=== PATIENT | female | born 1995 | race Caucasian/White ===

== ENCOUNTER 2018-01-24 21:29 | Emergency (ER) | payer OTHER ==
[2018-01-24 21:37] VITALS: BP 147/86; PULSE 106; RESP 20; TEMP 98.2
[2018-01-24] MEDS ORDERED: predniSONE 50 MG TAB PO STA (22:03)
[2018-01-24] MEDS ORDERED: diphenhydrAMINE 50 MG CAP PO STA (22:03)
--- NOTE | 2018-01-24 22:07 | ED ---
Skin/Abscess/FB HPI - General Source: patient, RN notes reviewed, old records reviewed Mode of arrival: ambulatory Limitations: no limitations <Lorelei Fischer - Last Filed: 01/25/18 05:29> <Tori Matthew - Last Filed: 01/25/18 05:56> - General Chief complaint: Skin/Abscess/Foreign Body Stated complaint: Allergic reaction Time Seen by Provider: 01/24/18 21:57 - History of Present Illness Initial comments: 22-year-old female presented today which included ALLERGIC reaction. She reports that she started to notice hives over her forearms chest and back. Patient states she does not know any new exposures. She reports the symptoms started when she came home from school today and she was laying on the couch. Patient states that she's had no new foods. No medications that are new. She denies any other complaints. She states that she initially took a shower and the pain and itching became worse at that time. No recent Benadryl. (Lorelei Fischer) - Related Data Previous Rx's Medication Instructions Recorded Hydrocortisone Cream 1 applic TOPICAL QID #60 gm 01/24/18 [Hydrocortisone 1% Cream] Loratadine [Claritin] 10 mg PO DAILY #20 tab 01/24/18 diphenhydrAMINE [Benadryl] 25 mg PO QID PRN #20 capsule 01/24/18 predniSONE 50 mg PO DAILY #4 tablet 01/24/18 Allergies Allergy/AdvReac Type Severity Reaction Status Date / Time amoxicillin Allergy Rash/Hives Verified 01/24/18 21:48 Penicillins Allergy Unknown Verified 01/24/18 21:48 Review of Systems ROS Other: All systems not noted in ROS Statement are negative. <Lorelei Fischer - Last Filed: 01/25/18 05:29> ROS Other: All systems not noted in ROS Statement are negative. <Tori Matthew - Last Filed: 01/25/18 05:56> ROS Statement: Those systems with pertinent positive or pertinent negative responses have been documented in the HPI. Past Medical History Past Medical History: No Reported History Past Surgical History: No Surgical Hx Reported Past Psychological History: No Psychological Hx Reported Smoking Status: Never smoker Past Alcohol Use History: None Reported Past Drug Use History: None Reported <Lorelei Fischer - Last Filed: 01/25/18 05:29> General Exam Limitations: no limitations Head exam: Present: atraumatic, normocephalic, normal inspection Eye exam: Present: normal appearance, PERRL, EOMI. Absent: scleral icterus, conjunctival injection, periorbital swelling ENT exam: Present: normal exam, mucous membranes moist Neck exam: Present: normal inspection. Absent: tenderness, meningismus, lymphadenopathy Respiratory exam: Present: normal lung sounds bilaterally. Absent: respiratory distress, wheezes, rales, rhonchi, stridor Cardiovascular Exam: Present: regular rate, normal rhythm, normal heart sounds. Absent: systolic murmur, diastolic murmur, rubs, gallop, clicks GI/Abdominal exam: Present: soft, normal bowel sounds. Absent: distended, tenderness, guarding, rebound, rigid Extremities exam: Present: normal inspection, full ROM, normal capillary refill. Absent: tenderness, pedal edema, joint swelling, calf tenderness Back exam: Present: normal inspection Neurological exam: Present: alert, oriented X3, CN II-XII intact Psychiatric exam: Present: normal affect, normal mood Skin exam: Present: warm, dry, intact, normal color, rash (Urticaria over chest , upper abdomen. Over bilateral forearms and upper arms and mid back. No evidence of urticaria over the legs.) <Lorelei Fischer - Last Filed: 01/25/18 05:29> <Tori Matthew - Last Filed: 01/25/18 05:56> - General Exam Comments Initial Comments: 22-year-old female. Alert and oriented. Patient appears in no acute distress. (Lorelei Fischer) Vital Signs 01/24/18 21:35 Temperature 98.2 F Pulse Rate 106 H Respiratory 20 Rate Blood Pressure 147/86 O2 Sat by Pulse 99 Oximetry Medical Decision Making <Lorelei Fischer - Last Filed: 01/25/18 05:29> <Tori Matthew - Last Filed: 01/25/18 05:56> - Medical Decision Making 22-year-old female presents with ALLERGIC reaction rash. Patient does not know any new exposures. She has diffuse urticaria over her chest, abdomen and arms and back. No tongue swelling. No difficulty breathing. Patient reports her symptoms are worse after taking a hot shower. Patient was given a dose of Benadryl and steroids and emergency department. She otherwise appears in no acute distress. We'll discharge the Patient with entirely history medication, Benadryl and prednisone. Discussed no further exposures. Discussed she may need to follow-up with PCP or ENT for ALLERGY testing. Patient agrees treatment plan will comply. Return parameters were discussed. (Lorelei Fischer) I was available for consultation in the emergency department. The history and physical exam were done by the Midlevel Provider. Medical decision making was done by the Midlevel Provider. The Midlevel Provider did not contact me for this patient's care. I was not directly involved in this patient's care. (Tori Matthew) Disposition Is patient prescribed a controlled substance at d/c from ED?: No Time of Disposition: 22:04 <Lorelei Fischer - Last Filed: 01/25/18 05:29> <Tori Matthew - Last Filed: 01/25/18 05:56> Clinical Impression: Allergic reaction Disposition: HOME SELF-CARE Condition: Good Instructions: General Allergic Reaction (ED) Additional Instructions: Patient advised follow-up with primary care physician. Return to ED if any alarming signs or symptoms occur. Prescriptions: diphenhydrAMINE [Benadryl] 25 mg PO QID PRN #20 capsule PRN Reason: Itching Hydrocortisone Cream [Hydrocortisone 1% Cream] 1 applic TOPICAL QID #60 gm Loratadine [Claritin] 10 mg PO DAILY #20 tab predniSONE 50 mg PO DAILY #4 tablet Referrals: Chago Del Real MD [Primary Care Provider] - 1-2 days
== END 2018-01-24 22:17 | disposition home or self-care (01) ==
LOC: EC 21:29
DX: T78.40XA Allergy, unspecified, initial encounter (principal); Z88.0 Allergy status to penicillin
CPT/HCPCS: 99283; J7512

== ENCOUNTER 2018-05-17 15:39 | Emergency (ER) | payer OTHER ==
[2018-05-17 15:51] VITALS: TEMP 97.8
[2018-05-17 16:57] LABS: Appearance,Urine Clear (Clear); Bacteria,Urine Rare /hpf; Bilirubin,Urine Negative (Negative); Blood,Urine Negative (Negative); Color,Urine Yellow; Glucose,Urine (UA) Negative (Negative); Ketones,Urine Negative (Negative); Leukocyte Esterase,Urine Small (Negative); Mucus,Urine Rare /hpf; Nitrite,Urine Negative (Negative); PH, Urine 6.5 (5.0-8.0); Protein,Urine Negative (Negative); RBC,Urine 1 /hpf (0-5); Specific Gravity,Urine 1.016 (1.001-1.035); Squamous Epithelial Cell,Urine <1 /hpf (0-4); Urobilinogen,Urine <2.0 mg/dL (<2.0); WBC,Urine 3 /hpf (0-5)
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
--- NOTE | 2018-05-17 17:57 | XR ---
EXAMINATION TYPE: XR lumbar spine 2 or 3V DATE OF EXAM: 05/17/2018 COMPARISON: NONE HISTORY: Pain 3 views show normal spacing and alignment of the vertebra. Posterior elements are intact. Sacroiliac joints appear normal. There is no compression fracture. IMPRESSION: Normal lumbar spine.
--- NOTE | 2018-05-17 17:57 | XR ---
EXAMINATION TYPE: XR Hip Bilateral and AP pelvis DATE OF EXAM: 05/17/2018 COMPARISON: NONE HISTORY: Pain TECHNIQUE: 5 views. FINDINGS: The pelvic ring is intact. Proximal femurs and hip joints appear normal. There is no sign of hip join t dysplasia. Sacroiliac joints appear normal. IMPRESSION: Normal pelvis and bilateral hip exam.
[2018-05-17 18:57] VITALS: BP 130/72; PULSE 91; RESP 18
== END 2018-05-17 18:57 | disposition home or self-care (01) ==
LOC: EC 15:39
DX: M25.551 Pain in right hip (principal); M25.552 Pain in left hip; R51 Headache; M54.2 Cervicalgia; Z88.0 Allergy status to penicillin; V47.5XXA Car driver injured in collision with fixed or stationary object in traffic accident, initial encounter; Y92.410 Unspecified street and highway as the place of occurrence of the external cause
CPT/HCPCS: 81001; 81025; 72100; 73521; 72125; 70450; 99284; L0120

== ENCOUNTER → 2018-08-24 | Outpatient (CLI) | payer OTHER ==
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
== END | disposition home or self-care (01) ==
LOC: RADUSWWP 12:00
PROVIDERS: ATTEND Internal Medicine
DX: R10.9 Unspecified abdominal pain (principal)
CPT/HCPCS: 76700; 76857

== ENCOUNTER 2019-03-28 21:30 | Emergency (ER) | payer OTHER ==
[2019-03-28 21:34] VITALS: BP 158/91; PULSE 86; RESP 20; TEMP 99
[2019-03-28] MEDS ORDERED: IBUPROFEN 600 MG TAB PO STA (21:53)
--- NOTE | 2019-03-28 22:26 | ED ---
General Adult HPI - General Chief complaint: Extremity Problem,Nontraumatic Stated complaint: Arm pain Time Seen by Provider: 03/28/19 21:38 Source: patient Mode of arrival: ambulatory Limitations: no limitations - History of Present Illness Initial comments: 24-year-old female patient presents to the emergency department today for evaluation of right hand and arm tingling. She is also reporting discoloration to the right hand. Patient states that she notices started a couple of hours ago. Patient states that symptoms have not improved. States that her right arm does feel cold. She denies any known injury. Denies history of similar symptoms. Denies any medical problems in her history. Denies any recent medication use. Denies any alcohol or drug use. Patient denies any recent rash, fever, chills, shortness breath, chest pain, abdominal pain, nausea, vomiting, diarrhea, constipation, back pain, dizziness, weakness, hematuria, dysuria, urinary urgency, urinary frequency, headache, visual changes, or any other complaints. - Related Data Previous Rx's Medication Instructions Recorded Cyclobenzaprine [Flexeril] 5 mg PO TID #12 tablet 05/17/18 Ibuprofen [Motrin] 600 mg PO Q8HR PRN #30 tab 03/28/19 Allergies Allergy/AdvReac Type Severity Reaction Status Date / Time amoxicillin Allergy Unknown Verified 03/28/19 21:34 Childhood Penicillins Allergy Unknown Verified 03/28/19 21:34 Childhood Review of Systems ROS Statement: Those systems with pertinent positive or pertinent negative responses have been documented in the HPI. ROS Other: All systems not noted in ROS Statement are negative. Past Medical History Past Medical History: No Reported History History of Any Multi-Drug Resistant Organisms: None Reported Past Surgical History: No Surgical Hx Reported Past Psychological History: No Psychological Hx Reported Smoking Status: Never smoker Past Alcohol Use History: None Reported Past Drug Use History: None Reported General Exam Limitations: no limitations General appearance: alert, in no apparent distress, other (This is a well- developed, well-nourished adult female patient in no acute distress. Vital signs upon presentation are temperature 99.0 degrees her neck, pulse 86, respirations 20, blood pressure 158/91, pulse ox 99% on room air.) Neck exam: Present: normal inspection, full ROM. Absent: tenderness, meningismus, lymphadenopathy Respiratory exam: Present: normal lung sounds bilaterally. Absent: respiratory distress, wheezes, rales, rhonchi, stridor Cardiovascular Exam: Present: regular rate, normal rhythm, normal heart sounds. Absent: systolic murmur, diastolic murmur, rubs, gallop, clicks Extremities exam: Present: full ROM, normal capillary refill, other (There is bluish discoloration noted to the fingers on the right hand. Skin is warm and dry. Cap refills less than 3 seconds. Radial pulses 2+ and equal bilaterally.). Absent: tenderness, pedal edema, joint swelling, calf tenderness Neurological exam: Present: alert, oriented X3, CN II-XII intact Psychiatric exam: Present: normal affect, normal mood Skin exam: Present: warm, dry, intact, normal color. Absent: rash Course Vital Signs 03/28/19 21:32 Temperature 99 F Pulse Rate 86 Respiratory 20 Rate Blood Pressure 158/91 O2 Sat by Pulse 99 Oximetry Medical Decision Making - Medical Decision Making 24-year-old female patient presents to the emergency department today for evaluation of bluish discoloration to the right hand and tingling. Physical examination did reveal bluish discoloration to the fingers on the right hand however remainder of neurovascular status was intact. Pulses were intact. Alcohol swab was used to wipe the fingers clean. Patient was wearing dark blue jeans, is felt there is transfer of the dye onto her hand. She does have full range of motion of the right arm. No injury. She is given anti-inflammatory medication for possible nerve inflammation. She'll be discharged. With her primary care physician for recheck in 1-2 days. Return parameters were discussed in detail. They verbalize understanding and agree with this plan. Disposition Clinical Impression: Paresthesia and pain of right extremity Disposition: HOME SELF-CARE Condition: Good Instructions (If sedation given, give patient instructions): Paresthesia (ED) Additional Instructions: Take medications as instructed. Follow-up with her primary care physician for recheck in 1-2 days. Return to the emergency department immediately for any new, worsening, or concerning symptoms. Prescriptions: Ibuprofen [Motrin] 600 mg PO Q8HR PRN #30 tab PRN Reason: Pain Is patient prescribed a controlled substance at d/c from ED?: No Referrals: Chago Del Real MD [Primary Care Provider] - 1-2 days Time of Disposition: 22:26
== END 2019-03-28 23:01 | disposition home or self-care (01) ==
LOC: EC 21:30
DX: M79.641 Pain in right hand (principal); R20.2 Paresthesia of skin; R23.0 Cyanosis; R20.8 Other disturbances of skin sensation; Z88.0 Allergy status to penicillin
CPT/HCPCS: 99283

== ENCOUNTER 2020-09-26 22:36 | Emergency (ER) | payer OTHER ==
[2020-09-26 22:42] VITALS: TEMP 98
[2020-09-26] MEDS ORDERED: ACETAMINOPHEN TAB 500 MG TAB PO STA (23:13)
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
--- NOTE | 2020-09-27 00:30 | XR ---
EXAMINATION TYPE: XR humerus LT DATE OF EXAM: 09/27/2020 COMPARISON: NONE HISTORY: Pain TECHNIQUE: 2 views FINDINGS: Shoulder joint and elbow joint appear anatomic. I see no fracture nor dislocation. There ar e no pathologic calcifications. IMPRESSION: Negative left humerus exam.
--- NOTE | 2020-09-27 00:31 | XR ---
EXAMINATION TYPE: XR elbow complete LT DATE OF EXAM: 09/27/2020 COMPARISON: NONE HISTORY: Pain TECHNIQUE: 3 views FINDINGS: I see no fracture nor dislocation. Radial head is intact. There is no sign of elbow joint e ffusion. Joint spaces are normal. IMPRESSION: Negative left elbow exam.
[2020-09-27 00:46] VITALS: BP 113/74; PULSE 82; RESP 16
== END 2020-09-27 00:51 | disposition home or self-care (01) ==
LOC: EC 22:36
DX: M25.522 Pain in left elbow (principal); V89.2XXA Person injured in unspecified motor-vehicle accident, traffic, initial encounter; Y92.89 Other specified places as the place of occurrence of the external cause
CPT/HCPCS: 70450; 71046; 72125; 99284

== ENCOUNTER 2021-04-05 16:27 | Inpatient (IN) | payer MEDICAID, OTHER ==
[2021-04-05 17:26] LABS: Basophils % (A) 0 %; Eosinophils # (A) 0.1 k/uL (0-0.7); Eosinophils % (A) 1 %; HGB 13.6 gm/dL (11.4-16.0); Lymphocytes # (A) 1.8 k/uL (1.0-4.8); Lymphocytes % (A) 21 %; MCH 29.7 pg (25.0-35.0); MCHC 33.1 g/dL (31.0-37.0); MCV 89.7 fL (80.0-100.0); Mean Platelet Volume 7.6; Monocytes # (A) 0.2 k/uL (0-1.0); Monocytes % (A) 3 %; Neutrophils # (A) 6.5 k/uL (1.3-7.7); Neutrophils % (A) 75 %; Platelet Count 319 k/uL (150-450); RBC 4.57 m/uL (3.80-5.40); RDW 12.5 % (11.5-15.5); WBC 8.7 k/uL (3.8-10.6)
[2021-04-05 17:37] LABS: ALT 29 U/L (4-34); AST 33 U/L (14-36); Acetaminophen <10.0 ug/mL; African American GFR (CKD) >90 (>60 ml/min/1.73 sqM); Albumin 4.4 g/dL (3.5-5.0); Alcohol <10 mg/dL; Alkaline Phosphatase 63 U/L (38-126); Anion Gap 11 mmol/L; Blood Urea Nitrogen 13 mg/dL (7-17); Calcium 9.9 mg/dL (8.4-10.2); Carbon Dioxide 21 mmol/L (22-30); Chloride 107 mmol/L (98-107); Glucose 182 mg/dL (74-99); Non-African American GFR(CKD) 85 (>60 ml/min/1.73 sqM); Salicylate <1.0 mg/dL; Sodium 139 mmol/L (137-145); Total Bilirubin 0.7 mg/dL (0.2-1.3); Total Protein 7.4 g/dL (6.3-8.2)
[2021-04-05 19:22] LABS: Amphetamine Screen,Urine Not Detected (NotDetected); Barbiturate Screen,Urine Not Detected (NotDetected); Benzodiazepines Screen,Urine Not Detected (NotDetected); Cocaine Screen,Urine Not Detected (NotDetected); Methadone Screen, Urine Not Detected (NotDetected); Opiate Screen,Urine Not Detected (NotDetected); Oxycodone Screen, Urine Not Detected (NotDetected); Phencyclidine Screen,Urine Not Detected (NotDetected); Tricyclic Antidepressant,Urine Not Detected (NotDetected); Urn Cannabinoid Scrn Not Detected (NotDetected)
--- NOTE | 2021-04-05 21:10 | ED ---
Psych HPI - General Chief Complaint: Psychiatric Symptoms Stated Complaint: Mental Health Eval Time Seen by Provider: 04/05/21 16:43 Source: patient Mode of arrival: ambulatory - History of Present Illness Initial Comments: Lucy is a pleasant 26-year-old female presents the ER today reporting that she is depressed. Patient states that she just feels hopeless and doesn't want to live like this. Patient denies any psychiatric history. She does state that her family friend is a therapist and advised her to come in and accompanied her to the emergency department but was not present during my evaluation. She denies any specific suicidal plan. She denies any substance abuse but denies access to firearms in the home, denies history of self-harm. The therapist family friend who did accompany the patient the emergency department expresses concern that the patient has had odd behaviors been worsening for couple of months. There is concerned that she is at times respon ding to internal stimuli. She seems to have some paranoia's. They don't believe that she has had any significant amount of sleep for nearly 2 weeks. There is concerned that she is having an acute psychotic break. - Related Data Home Medications Medication Instructions Recorded Confirmed Fexofenadine HCl [Janett Allergy] 60 mg PO BID 04/05/21 04/05/21 Norethindrone-E.estradiol-Iron 1 tab PO DAILY 04/05/21 04/05/21 [Erlinda 24 Fe 1 mg-20 Mcg Tablet] Allergies Allergy/AdvReac Type Severity Reaction Status Date / Time amoxicillin Allergy Unknown Verified 04/05/21 18:17 Childhood Penicillins Allergy Unknown Verified 04/05/21 18:17 Childhood Review of Systems ROS Statement: Those systems with pertinent positive or pertinent negative responses have been documented in the HPI. ROS Other: All systems not noted in ROS Statement are negative. Past Medical History Past Medical History: No Reported History History of Any Multi-Drug Resistant Organisms: None Reported Past Surgical History: No Surgical Hx Reported Past Psychological History: No Psychological Hx Reported Smoking Status: Never smoker Past Alcohol Use History: None Reported Past Drug Use History: None Reported General Exam - General Exam Comments Initial Comments: Physical Exam GENERAL: Tearful HENT: Normocephalic, Atraumatic. EYES: PERRL, EOMI PULMONARY: Unlabored respirations. CARDIOVASCULAR: Warm and well perfused extremities ABDOMEN: Non-distended SKIN: No rashes or bruising : Deferred NEUROLOGIC: Alert and oriented Normal speech MUSCULOSKELETAL: Moving all extremities with no apparent injury PSYCHIATRIC: Depressed, helpless Limitations: no limitations Course Vital Signs 04/05/21 16:34 Temperature 99.2 F Pulse Rate 81 Respiratory 18 Rate Blood Pressure 165/73 O2 Sat by Pulse 97 Oximetry Medical Decision Making - Medical Decision Making Patient was seen and evaluated, patient medically cleared for evaluation psychiatric services [facility] nurse was able speak with the patient as well as a therapist at bedside who has concern for the patient having an acute psychotic break given that she seems to be responding to internal stimuli, very depressed, not sleeping not acting herself having very odd behaviors. At this time it was recommended the patient have inpatient care COVID 19 swab was obtained for placement - Lab Data Result diagrams: 04/05/21 17:10 04/05/21 17:10 Lab Results 04/05/21 04/05/21 04/05/21 Range/Units 17:10 17:10 18:59 WBC 8.7 (3.8-10.6) k/uL RBC 4.57 (3.80-5.40) m/uL Hgb 13.6 (11.4-16.0) gm/dL Hct 41.0 (34.0-46.0) % MCV 89.7 (80.0-100.0) fL MCH 29.7 (25.0-35.0) pg MCHC 33.1 (31.0-37.0) g/dL RDW 12.5 (11.5-15.5) % Plt Count 319 (150-450) k/uL MPV 7.6 Neutrophils % 75 % Lymphocytes % 21 % Monocytes % 3 % Eosinophils % 1 % Basophils % 0 % Neutrophils # 6.5 (1.3-7.7) k/uL Lymphocytes # 1.8 (1.0-4.8) k/uL Monocytes # 0.2 (0-1.0) k/uL Eosinophils # 0.1 (0-0.7) k/uL Basophils # 0.0 (0-0.2) k/uL Sodium 139 (137-145) mmol/L Potassium 4.0 (3.5-5.1) mmol/L Chloride 107 (98-107) mmol/L Carbon Dioxide 21 L (22-30) mmol/L Anion Gap 11 mmol/L BUN 13 (7-17) mg/dL Creatinine 0.94 (0.52-1.04) mg/dL Est GFR (CKD-EPI)AfAm >90 (>60 ml/min/1.73 sqM) Est GFR (CKD-EPI)NonAf 85 (>60 ml/min/1.73 sqM) Glucose 182 H (74-99) mg/dL Calcium 9.9 (8.4-10.2) mg/dL Total Bilirubin 0.7 (0.2-1.3) mg/dL AST 33 (14-36) U/L ALT 29 (4-34) U/L Alkaline Phosphatase 63 (38-126) U/L Total Protein 7.4 (6.3-8.2) g/dL Albumin 4.4 (3.5-5.0) g/dL Salicylates <1.0 mg/dL Urine Opiates Screen Not Detected (NotDetected) Ur Oxycodone Screen Not Detected (NotDetected) Urine Methadone Screen Not Detected (NotDetected) Ur Propoxyphene Screen Not Detected (NotDetected) Acetaminophen <10.0 ug/mL Ur Barbiturates Screen Not Detected (NotDetected) U Tricyclic Antidepress Not Detected (NotDetected) Ur Phencyclidine Scrn Not Detected (NotDetected) Ur Amphetamines Screen Not Detected (NotDetected) U Methamphetamines Scrn Not Detected (NotDetected) U Benzodiazepines Scrn Not Detected (NotDetected) Urine Cocaine Screen Not Detected (NotDetected) U Marijuana (THC) Screen Not Detected (NotDetected) Serum Alcohol <10 mg/dL Disposition Clinical Impression: Acute psychosis, Depression Disposition: TRANSFER TO PSYCH HOSP/UNIT Condition: Serious Is patient prescribed a controlled substance at d/c from ED?: No Referrals: Colby Hogan MD [Primary Care Provider] - 1-2 days
[2021-04-05 21:46] LABS: Amorphous Sediment,Urine Rare /hpf; Appearance,Urine Turbid (Clear); Bacteria,Urine Moderate /hpf; Color,Urine Light Red; Mucus,Urine Rare /hpf; RBC,Urine 1 /hpf (0-5); Specific Gravity,Urine 1.031 (1.001-1.035); Squamous Epithelial Cell,Urine 7 /hpf (0-4); WBC,Urine 21 /hpf (0-5)
[2021-04-05 21:47] LABS: Bilirubin,Urine Negative (Negative); Blood,Urine Negative (Negative); Glucose,Urine (UA) Negative (Negative); Ketones,Urine Negative (Negative); Leukocyte Esterase,Urine Moderate (Negative); Nitrite,Urine Negative (Negative); Protein,Urine 2+ (Negative)
[2021-04-05] MEDS ORDERED: LORazepam 1 MG TAB PO STA (23:04)
[2021-04-06] MEDS ORDERED: MAG HYDROX/AL HYDROX/SIMETH 30 ML CUP PO PRN (15:05)
[2021-04-06] MEDS ORDERED: HALOPERIDOL LACTATE 5 MG/ML 1 ML VIAL IM PRN (15:05)
[2021-04-06] MEDS ORDERED: ACETAMINOPHEN TAB 325 MG TAB PO PRN (15:05)
[2021-04-06] MEDS ORDERED: MAGNESIUM HYDROXIDE 2,400 MG/10 ML CUP PO PRN (15:05)
[2021-04-06] MEDS ORDERED: LORazepam 1 MG TAB PO PRN (15:05)
[2021-04-06] MEDS ORDERED: LORazepam 2 MG/ML INJ IM PRN (15:12)
[2021-04-06] MEDS ORDERED: haloperidoL 5 MG TAB PO PRN (15:12)
[2021-04-06] MEDS ORDERED: traZODone HCL 50 MG TAB PO PRN (15:12)
--- NOTE | 2021-04-07 00:05 | P.PN ---
Progress Note - Text Progress Note Date: 04/07/21 The patient refused to be seen or evaluated at 2100 on 04/06.
[2021-04-07] MEDS ORDERED: INFLUENZA VACC (6 MOS-64 YRS) 60 MCG/0.5 ML SYRINGE IM ONE (09:00)
[2021-04-07] MEDS: LORATADINE 10 MG TAB PO SCH (09:05)
[2021-04-07 09:06] LABS: Chol/HDL Ratio 3.81 Ratio; LDL Cholesterol,Calculated 52.4 mg/dL (0.0-131.0)
[2021-04-07] MEDS: NORETHINDRONE E ESTRADIOL IRON PO SCH (09:06)
[2021-04-07 09:42] VITALS: RESP 16
[2021-04-07] MEDS ORDERED: FLUoxetine HCL 20 MG CAP PO STA (10:15)
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
[2021-04-07] MEDS: QUEtiapine 50 MG TAB PO SCH (20:40)
--- NOTE | 2021-04-07 22:29 | P.CONS ---
History of Present Illness - Reason for Consult Consult date: 04/07/21 - History of Present Illness The patient is a 36-year-old female with no known PMH who had presented to the emergency room with depression and suicidal ideation. The patient was admitted to the mental health unit where she was seen and evaluated. She reports having multiple social stressors which has been difficult for her to deal with, causing her to contemplate suicide. She denied any specific plan of harming herself. She further denied any physical complaints at the time of interview. She denied any chronic medical conditions and does not take any medications at home. She denied chest discomfort, shortness of breath, fever, chills, cough, nausea, vomiting, abdominal pain, diarrhea. She denied tobacco, marijuana, or alcohol use. Review of systems: Pertinent positives and negatives as discussed in HPI, a complete review of systems was performed and all other systems are negative. Physical examination: General: non toxic, no distress, appears at stated age, obese Derm: no unusual rashes/lesions no unusual ecchymoses, warm, dry Head: atraumatic, normocephalic, symmetric Eyes: EOMI, no lid lag, anicteric sclera, pupils equal round reactive to light ENT: Nose and ears atraumatic, no thrush, no pharyngeal erythema Neck: No thyromegaly, no cervical lymphadenopathy, trachea midline, supple Mouth: no lip lesion, mucus membranes moist Cardiovascular: S1S2 reg, no murmur, positive posterior tibial pulse bilateral, no edema, capillary refill less than 2 seconds Lungs: CTA bilateral, no rhonchi, no rales , no accessory muscle use Abdominal: soft, nontender to palpation, no guarding, no appreciable organomegaly, normal bowel sounds Ext: no gross muscle atrophy, muscle strength 5 out of 5 in all 4 extremities grossly, no contractures, Neuro: CN II-XI grossly intact, light touch intact all 4 extremities, finger to nose within normal limits, Psych: Alert, oriented, appropriate affect Assessment/plan Obesity -Advised on an outpatient dietitian visit and lifestyle changes Depression and suicidal ideation -As per psychiatry Thank you for allowing us to participate in the care of this patient. We will follow peripherally. Do not hesitate to contact us with questions. Someone can be reached from the [facility] [place]Note 2[place] hospitalist group at all hours of the day at [phone]. Past Medical History Past Medical History: No Reported History History of Any Multi-Drug Resistant Organisms: None Reported Past Surgical History: No Surgical Hx Reported Past Anesthesia/Blood Transfusion Reactions: No Reported Reaction Past Psychological History: No Psychological Hx Reported Smoking Status: Never smoker Past Alcohol Use History: None Reported Past Drug Use History: None Reported - Past Family History Mother Family Medical History: Hypertension Medications and Allergies Home Medications Medication Instructions Recorded Confirmed Type Fexofenadine HCl [Janett Allergy] 60 mg PO BID 04/05/21 04/05/21 History Norethindrone-E.estradiol-Iron 1 tab PO DAILY 04/05/21 04/05/21 History [Erlinda 24 Fe 1 mg-20 Mcg Tablet] Allergies Allergy/AdvReac Type Severity Reaction Status Date / Time amoxicillin Allergy Unknown Verified 04/05/21 18:17 Childhood Penicillins Allergy Unknown Verified 04/05/21 18:17 Childhood Physical Exam Vitals: Vital Signs Temp Pulse Resp BP 04/07/21 08:00 97.6 F 101 H 16 124/71 Results CBC & Chem 7: 04/05/21 17:10 04/05/21 17:10 Labs: Abnormal Lab Results - Last 24 Hours (Table) 04/05/21 Range/Units 17:10 Triglycerides 177.00 H (0.00-149.00) mg/dL HDL Cholesterol 31.20 L (40.00-60.00) mg/dL
[2021-04-08] MEDS ORDERED: FLUoxetine HCL 10 MG CAP PO SCH (09:00)
[2021-04-08] MEDS: LORATADINE 10 MG TAB PO SCH (10:24)
[2021-04-08] MEDS: NORETHINDRONE E ESTRADIOL IRON PO SCH (10:25)
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
[2021-04-08] MEDS: QUEtiapine 50 MG TAB PO SCH (20:52)
[2021-04-09] MEDS: LORATADINE 10 MG TAB PO SCH (08:21)
[2021-04-09] MEDS: FLUoxetine HCL 20 MG CAP PO SCH (08:21)
[2021-04-09] MEDS: NORETHINDRONE E ESTRADIOL IRON PO SCH (08:22)
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
[2021-04-09] MEDS: QUEtiapine 50 MG TAB PO SCH (21:05)
[2021-04-10] MEDS: FLUoxetine HCL 20 MG CAP PO SCH (08:14)
[2021-04-10] MEDS: LORATADINE 10 MG TAB PO SCH (08:15)
[2021-04-10] MEDS: NORETHINDRONE E ESTRADIOL IRON PO SCH (08:15)
[2021-04-10 10:32] VITALS: BP 114/77; PULSE 94; TEMP 98.4
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
== END 2021-04-10 11:40 | disposition home or self-care (01) | DRG 885 ==
LOC: EC 16:27 → 3MHU 04-06 14:45
PROVIDERS: ADMIT Psychiatry & Neurology Psychiatry; ATTEND Psychiatry & Neurology Psychiatry
DX: F31.81 Bipolar II disorder (principal); R45.851 Suicidal ideations; Z20.822 Contact with and (suspected) exposure to COVID-19; Z23 Encounter for immunization; F41.1 Generalized anxiety disorder; E66.9 Obesity, unspecified; Z68.31 Body mass index [BMI] 31.0-31.9, adult; Z87.820 Personal history of traumatic brain injury; Z88.0 Allergy status to penicillin; Z79.3 Long term (current) use of hormonal contraceptives; Z79.899 Other long term (current) drug therapy; Z82.49 Family history of ischemic heart disease and other diseases of the circulatory system; Z71.85 Encounter for immunization safety counseling; Z53.29 Procedure and treatment not carried out because of patient's decision for other reasons
CPT/HCPCS: 36415; 80053; 80061; 80143; 80179; 80306; 80320; 81001; 81025; 82075; 83036; 84443; 85025; 87635; 90686; 99284

== ENCOUNTER 2021-12-02 22:34 | Emergency (ER) | payer OTHER ==
[2021-12-02] MEDS ORDERED: MORPHINE SULFATE 4 MG/ML SYRINGE IV STA (23:36)
[2021-12-02] MEDS ORDERED: SODIUM CHLORIDE 0.9% 1,000 ML IV STA (23:36)
[2021-12-02] MEDS ORDERED: ONDANSETRON 4 MG/2 ML VIAL IVP STA (23:36)
[2021-12-02 23:37] VITALS: BP 152/88; PULSE 82; RESP 16; TEMP 98.3
--- NOTE | 2021-12-02 23:41 | ED ---
Abdominal Pain HPI - General Chief Complaint: Abdominal Pain Stated Complaint: ABD Pain Time Seen by Provider: 12/02/21 23:31 Source: patient, RN notes reviewed Mode of arrival: ambulatory Limitations: no limitations - History of Present Illness Initial Comments: This is a pleasant 26-year-old female who presents to the emergency complaining of right lower quadrant pain which is constant, made worse with bumps in palpation, somewhat diminished appetite. Some nausea but no vomiting. Patient developed this pain on Tuesday and has been constant since then. No alleviating factors. Patient states her last menstrual period was 2.5 weeks ago. That was normal. Patient denying any vaginal bleeding or vaginal discharge. No history of ovarian pathology. Patient denying any fever. No headache, no fever or chills, no changes in vision or hearing, no sore throat or difficulty with speech, no neck pain, no chest pain or shortness of breath, no nausea or vomiting, no changes in urination or bowel movements, no numbness or tingling, no extremity pain, no skin rashes or lesions. Past medical, surgical, social, and family history reviewed. MD Complaint: abdominal pain - Related Data Home Medications Medication Instructions Recorded Confirmed Fexofenadine HCl [Janett Allergy] 60 mg PO BID 04/05/21 04/05/21 norethindrone-e.estradioL-iron 1 tab PO DAILY 04/05/21 04/05/21 [Erlinda 24 Fe 1 mg-20 Mcg Tablet] Previous Rx's Medication Instructions Recorded FLUoxetine HCL [PROzac] 40 mg PO DAILY 30 Days cap 04/10/21 QUEtiapine [SEROquel] 50 mg PO HS 30 Days tab 04/10/21 Naproxen [Naprosyn] 375 mg PO Q12HR PRN #20 tablet 12/03/21 Allergies Allergy/AdvReac Type Severity Reaction Status Date / Time amoxicillin Allergy Unknown Verified 04/05/21 18:17 Childhood Penicillins Allergy Unknown Verified 04/05/21 18:17 Childhood Review of Systems ROS Statement: Those systems with pertinent positive or pertinent negative responses have been documented in the HPI. ROS Other: All systems not noted in ROS Statement are negative. Past Medical History Past Medical History: No Reported History History of Any Multi-Drug Resistant Organisms: None Reported Past Surgical History: No Surgical Hx Reported Past Anesthesia/Blood Transfusion Reactions: No Reported Reaction Past Psychological History: No Psychological Hx Reported Smoking Status: Never smoker Past Alcohol Use History: None Reported Past Drug Use History: None Reported - Past Family History Mother Family Medical History: Hypertension General Exam - General Exam Comments Initial Comments: Patient mild distress. Does not appear to be ill or toxic. Appears weak and dehydrated. Distress secondary to right lower quadrant abdominal pain. Limitations: no limitations General appearance: alert, in distress Head exam: Present: atraumatic, normocephalic, normal inspection Eye exam: Present: normal appearance, PERRL, EOMI. Absent: scleral icterus, conjunctival injection, periorbital swelling ENT exam: Present: normal exam, mucous membranes moist Neck exam: Present: normal inspection, full ROM. Absent: tenderness, meningismus, lymphadenopathy Respiratory exam: Present: normal lung sounds bilaterally. Absent: respiratory distress, wheezes, rales, rhonchi, stridor, chest wall tenderness, accessory muscle use Cardiovascular Exam: Present: regular rate, normal rhythm, normal heart sounds. Absent: systolic murmur, diastolic murmur, rubs, gallop, clicks GI/Abdominal exam: Present: soft, tenderness (Right lower quadrant abdominal tenderness), normal bowel sounds. Absent: distended, guarding, rebound, rigid Extremities exam: Present: normal inspection, full ROM, normal capillary refill. Absent: tenderness, pedal edema, joint swelling, calf tenderness Back exam: Present: normal inspection Neurological exam: Present: alert, oriented X3, CN II-XII intact Psychiatric exam: Present: normal affect, normal mood Skin exam: Present: warm, dry, intact, normal color. Absent: rash Course Vital Signs 12/02/21 23:32 Temperature 98.3 F Pulse Rate 82 Respiratory 16 Rate Blood Pressure 152/88 O2 Sat by Pulse 98 Oximetry - Reevaluation(s) Reevaluation #1: 12/03/21 01:40 Medical record is reviewed Symptoms are improved here in the emergency department Patient is informed of results and questions answered Patient in no distress Medical Decision Making - Medical Decision Making Differential diagnosis is wide. Patient does have tenderness in the right lower quadrant. Certainly appendicitis is within the differential. Patient denying chance of , however, ectopic also possibility. Does not appear to be consistent with ovarian torsion. Ovarian cyst is possible. Patient has no vaginal discharge or vaginal bleeding. Unlikely to be a tubo- ovarian abscess or PID. Other intra-abdominal infectious versus inflammatory etiology possible. Not consistent with kidney stone. Patient has no voiding irritation. Patient has evidence of a right-sided hemorrhagic ovarian cyst measuring 6.8 x 6.0 x 4.3 cm findings consistent with a hemorrhagic cyst. Normal blood flow to both ovaries. Patient's white blood cell count is negative. Given the patient's ultrasound findings I believe the ovarian cyst as cause of the patient's symptomology. We did discuss possibility of, appendicitis. However I think this is unlikely. After long discussion, computed tomography scan was deferred. Patient will follow up with gynecology. We'll treat conservatively with pain medication and anti-inflammatory medications. All questions answered. All tests discussed. Patient was told to return to the ER for any signs or symptoms worsen. Told to return immediately if any other problems arise. All questions answered. Treatment plan discussed. Patient in agreement Every effort has been made to ensure accuracy of this dictation. However, due to the limitations of electronic medical records and dictation devices, errors in charting still occur. The case was discussed in detail with ED attending physician. Presentation, findings, treatment plan discussed in detail. Brand Activation Manager Dr. Tanner - Lab Data Result diagrams: 12/03/21 01:08 Lab Results 12/03/21 12/03/21 12/03/21 Range/Units 00:32 00:32 01:08 WBC 8.8 (3.8-10.6) k/uL RBC 4.65 (3.80-5.40) m/uL Hgb 13.6 (11.4-16.0) gm/dL Hct 41.5 (34.0-46.0) % MCV 89.3 (80.0-100.0) fL MCH 29.3 (25.0-35.0) pg MCHC 32.8 (31.0-37.0) g/dL RDW 12.8 (11.5-15.5) % Plt Count 281 (150-450) k/uL MPV 7.4 Neutrophils % 62 % Lymphocytes % 29 % Monocytes % 4 % Eosinophils % 3 % Basophils % 1 % Neutrophils # 5.4 (1.3-7.7) k/uL Lymphocytes # 2.5 (1.0-4.8) k/uL Monocytes # 0.4 (0-1.0) k/uL Eosinophils # 0.2 (0-0.7) k/uL Basophils # 0.1 (0-0.2) k/uL Urine Color Light Yellow Urine Appearance Clear (Clear) Urine pH 6.0 (5.0-8.0) Ur Specific [place] 1.012 (1.001-1.035) Urine Protein Negative (Negative) Urine Glucose (UA) Negative (Negative) Urine Ketones Negative (Negative) Urine Blood Negative (Negative) Urine Nitrite Negative (Negative) Urine Bilirubin Negative (Negative) Urine Urobilinogen <2.0 (<2.0) mg/dL Ur Leukocyte Esterase Negative (Negative) Urine HCG, Qual Not Detected (Not Detectd) - Radiology Data Radiology results: report reviewed, image reviewed Disposition Clinical Impression: Hemorrhagic cyst of right ovary Disposition: HOME SELF-CARE Condition: Good Instructions (If sedation given, give patient instructions): Ovarian Cyst (ED) Additional Instructions: Call at 8 AM to set up appointment with your registered nurse cardiac telemetry. Alternatively, they do not have a registered nurse cardiac telemetry she can make an appointment with the on-call registered nurse cardiac telemetry that I provided. You can also follow-up with your regular physician. Pelvic rest, no sexual activity until symptoms have resolved. Follow-up with your regular physician as directed. Return to the ER immediately if any symptoms worsen, new symptoms arise, or any other problems develop. Is patient prescribed a controlled substance at d/c from ED?: No Referrals: Colby Hogan MD [Primary Care Provider] - 1-2 days Mirna Mahmood DO [Doctor of Osteopathic Medicine] - 1-2 days Time of Disposition: 01:44
[2021-12-03 00:47] LABS: Appearance,Urine Clear (Clear); Bilirubin,Urine Negative (Negative); Blood,Urine Negative (Negative); Color,Urine Light Yellow; Glucose,Urine (UA) Negative (Negative); Ketones,Urine Negative (Negative); Leukocyte Esterase,Urine Negative (Negative); Nitrite,Urine Negative (Negative); Protein,Urine Negative (Negative); Specific Gravity,Urine 1.012 (1.001-1.035); Urobilinogen,Urine <2.0 mg/dL (<2.0)
--- NOTE | 2021-12-03 01:02 | US ---
EXAM: US Pelvis Transvaginal CLINICAL HISTORY: ITS.REASON US Reason: R pelvic pain TECHNIQUE: Real-time transvaginal pelvic ultrasound with image documentation. Transvaginal imaging was used for better evaluation of the endometrium and adnexa. COMPARISON: No relevant prior studies available. FINDINGS: Uterus/cervix: The uterus measures 7.7 x 4.3 x 3.5 cm. The endometrial stripe measures 10 mm. No myometrial mass. Right ovary: The right ovary measures 3.2 x 2.2 x 1.9 cm. No mass. Normal blood flow. Left ovary: Measures 2.9 x 2.7 x 1.8 cm. There is a complex ovarian cyst, measuring 6.8 x 6.0 x 4.3 cm, with findings concerning for internal hemorrhage. Normal blood flow. Free fluid: No free fluid. Bladder: Empty bladder which cannot be evaluated with this probe. IMPRESSION: Findings concerning for a hemorrhagic right ovarian cyst. Recommend follow-up pelvic ultrasound in 1-2 months to evaluate for resolution.
[2021-12-03 01:28] LABS: Basophils # (A) 0.1 k/uL (0-0.2); Basophils % (A) 1 %; Eosinophils # (A) 0.2 k/uL (0-0.7); Eosinophils % (A) 3 %; HCT 41.5 % (34.0-46.0); HGB 13.6 gm/dL (11.4-16.0); Lymphocytes # (A) 2.5 k/uL (1.0-4.8); Lymphocytes % (A) 29 %; MCH 29.3 pg (25.0-35.0); MCHC 32.8 g/dL (31.0-37.0); MCV 89.3 fL (80.0-100.0); Mean Platelet Volume 7.4; Monocytes # (A) 0.4 k/uL (0-1.0); Monocytes % (A) 4 %; Neutrophils # (A) 5.4 k/uL (1.3-7.7); Neutrophils % (A) 62 %; Platelet Count 281 k/uL (150-450); RBC 4.65 m/uL (3.80-5.40); RDW 12.8 % (11.5-15.5); WBC 8.8 k/uL (3.8-10.6)
[2021-12-03] MEDS ORDERED: ACET/COD 300 MG/30 MG STARTER PACK 6 TAB BTL PO STA (01:43)
== END 2021-12-03 01:54 | disposition home or self-care (01) ==
LOC: EC 22:34
DX: N83.201 Unspecified ovarian cyst, right side (principal); Z88.0 Allergy status to penicillin; Z88.1 Allergy status to other antibiotic agents
CPT/HCPCS: 36415; 76830; 81003; 81025; 85025; 93975; 96374; 96375; 99284

== ENCOUNTER 2021-12-05 22:13 | Emergency (ER) | payer OTHER ==
[2021-12-05 23:01] LABS: Basophils % (A) 1 %; Eosinophils # (A) 0.3 k/uL (0-0.7); Eosinophils % (A) 4 %; HCT 42.4 % (34.0-46.0); HGB 13.8 gm/dL (11.4-16.0); Lymphocytes # (A) 2.4 k/uL (1.0-4.8); Lymphocytes % (A) 31 %; MCH 29.2 pg (25.0-35.0); MCHC 32.6 g/dL (31.0-37.0); MCV 89.7 fL (80.0-100.0); Mean Platelet Volume 7.4; Monocytes # (A) 0.5 k/uL (0-1.0); Monocytes % (A) 6 %; Neutrophils # (A) 4.3 k/uL (1.3-7.7); Neutrophils % (A) 57 %; Platelet Count 282 k/uL (150-450); RBC 4.72 m/uL (3.80-5.40); RDW 12.7 % (11.5-15.5); WBC 7.7 k/uL (3.8-10.6)
[2021-12-05 23:12] LABS: Appearance,Urine Cloudy (Clear); Bacteria,Urine Occasional /hpf; Bilirubin,Urine Negative (Negative); Blood,Urine Negative (Negative); Budding Yeast,Urine Rare /hpf; Color,Urine Yellow; Glucose,Urine (UA) Negative (Negative); Hyaline Casts,Urine 1 /lpf (0-2); Ketones,Urine Negative (Negative); Leukocyte Esterase,Urine Large (Negative); Mucus,Urine Rare /hpf; Nitrite,Urine Negative (Negative); PH, Urine 5.5 (5.0-8.0); Protein,Urine 1+ (Negative); RBC,Urine 1 /hpf (0-5); Specific Gravity,Urine 1.037 (1.001-1.035); Squamous Epithelial Cell,Urine 8 /hpf (0-4); Urobilinogen,Urine <2.0 mg/dL (<2.0); WBC,Urine 83 /hpf (0-5)
[2021-12-05 23:12] LABS: ALT 22 U/L (4-34); AST 30 U/L (14-36); African American GFR (CKD) >90 (>60 ml/min/1.73 sqM); Albumin 4.3 g/dL (3.5-5.0); Alkaline Phosphatase 64 U/L (38-126); Amylase 40 U/L (30-110); Anion Gap 13 mmol/L; Blood Urea Nitrogen 15 mg/dL (7-17); Calcium 9.3 mg/dL (8.4-10.2); Carbon Dioxide 23 mmol/L (22-30); Chloride 106 mmol/L (98-107); Glucose 102 mg/dL (74-99); Lipase 80 U/L (23-300); Non-African American GFR(CKD) 85 (>60 ml/min/1.73 sqM); Sodium 142 mmol/L (137-145); Total Bilirubin 0.2 mg/dL (0.2-1.3)
[2021-12-05] MEDS ORDERED: ONDANSETRON 4 MG/2 ML VIAL IVP STA (23:59)
[2021-12-05] MEDS ORDERED: SODIUM CHLORIDE 0.9% 1,000 ML IV STA (23:59)
[2021-12-05] MEDS ORDERED: KETOROLAC 15 MG/ML 1 ML VIAL IVP STA (23:59)
--- NOTE | 2021-12-06 00:02 | ED ---
General Adult HPI - General Chief complaint: Abdominal Pain Stated complaint: ovarian cyst Time Seen by Provider: 12/05/21 23:27 Source: patient, RN notes reviewed Mode of arrival: ambulatory Limitations: no limitations - History of Present Illness Initial comments: 26-year-old female presents to the emergency Department with complaints of right lower quadrant abdominal pain that extends to the suprapubic region and to the right flank. Patient states she was diagnosed with a right ovarian cyst on Tuesday and spoke with her [facility] regarding her worsening discomfort. She was instructed to come to the emergency department for further evaluation. No aggravating or alleviating factors. LMP 3 weeks ago. Patient does complain of mild nausea and loss of appetite. Denies fever, chills, chest pain, shortness of breath, vomiting, diarrhea, dysuria, hematuria, vaginal bleeding/discharge, and pelvic pain. - Related Data Home Medications Medication Instructions Recorded Confirmed Fexofenadine HCl [Ajnett Allergy] 60 mg PO BID 04/05/21 04/05/21 norethindrone-e.estradioL-iron 1 tab PO DAILY 04/05/21 04/05/21 [Erlinda 24 Fe 1 mg-20 Mcg Tablet] Previous Rx's Medication Instructions Recorded FLUoxetine HCL [PROzac] 40 mg PO DAILY 30 Days cap 04/10/21 QUEtiapine [SEROquel] 50 mg PO HS 30 Days tab 04/10/21 Naproxen [Naprosyn] 375 mg PO Q12HR PRN #20 tablet 12/03/21 Cephalexin [Keflex] 500 mg PO BID 5 Days #10 cap 12/06/21 HYDROcodone/APAP 5-325MG [[place] 5] 1 each PO Q6HR PRN #12 tab 12/06/21 Allergies Allergy/AdvReac Type Severity Reaction Status Date / Time amoxicillin Allergy Unknown Verified 04/05/21 18:17 Childhood Penicillins Allergy Unknown Verified 04/05/21 18:17 Childhood Review of Systems ROS Statement: Those systems with pertinent positive or pertinent negative responses have been documented in the HPI. ROS Other: All systems not noted in ROS Statement are negative. Past Medical History Past Medical History: No Reported History History of Any Multi-Drug Resistant Organisms: None Reported Past Surgical History: No Surgical Hx Reported Past Anesthesia/Blood Transfusion Reactions: No Reported Reaction Past Psychological History: No Psychological Hx Reported Smoking Status: Never smoker Past Alcohol Use History: None Reported Past Drug Use History: None Reported - Past Family History Mother Family Medical History: Hypertension General Exam Limitations: no limitations General appearance: alert, in no apparent distress ENT exam: Present: normal oropharynx, mucous membranes moist Respiratory exam: Present: normal lung sounds bilaterally. Absent: respiratory distress, wheezes, rales, rhonchi, stridor Cardiovascular Exam: Present: regular rate, normal rhythm, normal heart sounds. Absent: systolic murmur, diastolic murmur, rubs, gallop, clicks GI/Abdominal exam: Present: soft, tenderness (Suprapubic tenderness extending to the right lower quadrant), normal bowel sounds. Absent: distended, guarding, rebound, rigid Back exam: Present: CVA tenderness (R) Neurological exam: Present: alert, oriented X3, normal gait Psychiatric exam: Present: normal affect, normal mood Course Vital Signs 12/05/21 12/06/21 12/06/21 22:29 00:33 02:13 Temperature 98.2 F 97.8 F Pulse Rate 76 69 68 Respiratory 16 17 18 Rate Blood Pressure 150/98 135/78 114/76 O2 Sat by Pulse 99 99 98 Oximetry - Reevaluation(s) Reevaluation #1: 12/06/21 01:[address] Mahmood regarding this patient's care. Patient will be instructed on pain medication regimen and started on antibiotic for UTI. She is scheduled t o follow up in the office on Tuesday. Medical Decision Making - Medical Decision Making 26-year-old female with a recent diagnosis of hemorrhagic right ovarian cyst presents to the emergency department for reevaluation of persistent and w orsening suprapubic and right lower quadrant pain. Upon exam, patient is well- appearing and in no acute distress. Her abdomen is soft with tenderness localized suprapubic but extending to the right side of her abdomen. Patient was given IV fluids, Toradol, Dilaudid, and Zofran with improvement. Laboratory studies were obtained and urinalysis shows large leukocyte esterase with 83 urine WBCs per HPF and occasional urine bacteria. Antibiotic will be initiated for UTI. No further imaging merited at this time. [place] will be prescribed for abdominal pain. Instructed to alternate with naproxen for better pain control. Is scheduled to follow-up with [facility] on Tuesday. Discussed return parameters. Patient verbalizes understanding and agrees with this plan. Attending: Carol. - Lab Data Result diagrams: 12/05/21 22:48 12/05/21 22:48 Lab Results 12/05/21 12/05/21 12/05/21 Range/Units 22:48 22:48 22:49 WBC 7.7 (3.8-10.6) k/uL RBC 4.72 (3.80-5.40) m/uL Hgb 13.8 (11.4-16.0) gm/dL Hct 42.4 (34.0-46.0) % MCV 89.7 (80.0-100.0) fL MCH 29.2 (25.0-35.0) pg MCHC 32.6 (31.0-37.0) g/dL RDW 12.7 (11.5-15.5) % Plt Count 282 (150-450) k/uL MPV 7.4 Neutrophils % 57 % Lymphocytes % 31 % Monocytes % 6 % Eosinophils % 4 % Basophils % 1 % Neutrophils # 4.3 (1.3-7.7) k/uL Lymphocytes # 2.4 (1.0-4.8) k/uL Monocytes # 0.5 (0-1.0) k/uL Eosinophils # 0.3 (0-0.7) k/uL Basophils # 0.0 (0-0.2) k/uL Sodium 142 (137-145) mmol/L Potassium 4.0 (3.5-5.1) mmol/L Chloride 106 (98-107) mmol/L Carbon Dioxide 23 (22-30) mmol/L Anion Gap 13 mmol/L BUN 15 (7-17) mg/dL Creatinine 0.95 (0.52-1.04) mg/dL Est GFR (CKD-EPI)AfAm >90 (>60 ml/min/1.73 sqM) Est GFR (CKD-EPI)NonAf 85 (>60 ml/min/1.73 sqM) Glucose 102 H (74-99) mg/dL Calcium 9.3 (8.4-10.2) mg/dL Total Bilirubin 0.2 (0.2-1.3) mg/dL AST 30 (14-36) U/L ALT 22 (4-34) U/L Alkaline Phosphatase 64 (38-126) U/L Total Protein 7.0 (6.3-8.2) g/dL Albumin 4.3 (3.5-5.0) g/dL Amylase 40 (30-110) U/L Lipase 80 (23-300) U/L Urine Color Yellow Urine Appearance Cloudy H (Clear) Urine pH 5.5 (5.0-8.0) Ur Specific [place] 1.037 H (1.001-1.035) Urine Protein 1+ H (Negative) Urine Glucose (UA) Negative (Negative) Urine Ketones Negative (Negative) Urine Blood Negative (Negative) Urine Nitrite Negative (Negative) Urine Bilirubin Negative (Negative) Urine Urobilinogen <2.0 (<2.0) mg/dL Ur Leukocyte Esterase Large H (Negative) Urine RBC 1 (0-5) /hpf Urine WBC 83 H (0-5) /hpf Ur Squamous Epith Cells 8 H (0-4) /hpf Urine Bacteria Occasional H (None) /hpf Hyaline Casts 1 (0-2) /lpf Urine Mucus Rare H (None) /hpf Urine Yeast (Budding) Rare H (None) /hpf Urine HCG, Qual (Not Detectd) 12/05/21 Range/Units 22:49 WBC (3.8-10.6) k/uL RBC (3.80-5.40) m/uL Hgb (11.4-16.0) gm/dL Hct (34.0-46.0) % MCV (80.0-100.0) fL MCH (25.0-35.0) pg MCHC (31.0-37.0) g/dL RDW (11.5-15.5) % Plt Count (150-450) k/uL MPV Neutrophils % % Lymphocytes % % Monocytes % % Eosinophils % % Basophils % % Neutrophils # (1.3-7.7) k/uL Lymphocytes # (1.0-4.8) k/uL Monocytes # (0-1.0) k/uL Eosinophils # (0-0.7) k/uL Basophils # (0-0.2) k/uL Sodium (137-145) mmol/L Potassium (3.5-5.1) mmol/L Chloride (98-107) mmol/L Carbon Dioxide (22-30) mmol/L Anion Gap mmol/L BUN (7-17) mg/dL Creatinine (0.52-1.04) mg/dL Est GFR (CKD-EPI)AfAm (>60 ml/min/1.73 sqM) Est GFR (CKD-EPI)NonAf (>60 ml/min/1.73 sqM) Glucose (74-99) mg/dL Calcium (8.4-10.2) mg/dL Total Bilirubin (0.2-1.3) mg/dL AST (14-36) U/L ALT (4-34) U/L Alkaline Phosphatase (38-126) U/L Total Protein (6.3-8.2) g/dL Albumin (3.5-5.0) g/dL Amylase (30-110) U/L Lipase (23-300) U/L Urine Color Urine Appearance (Clear) Urine pH (5.0-8.0) Ur Specific [place] (1.001-1.035) Urine Protein (Negative) Urine Glucose (UA) (Negative) Urine Ketones (Negative) Urine Blood (Negative) Urine Nitrite (Negative) Urine Bilirubin (Negative) Urine Urobilinogen (<2.0) mg/dL Ur Leukocyte Esterase (Negative) Urine RBC (0-5) /hpf Urine WBC (0-5) /hpf Ur Squamous Epith Cells (0-4) /hpf Urine Bacteria (None) /hpf Hyaline Casts (0-2) /lpf Urine Mucus (None) /hpf Urine Yeast (Budding) (None) /hpf Urine HCG, Qual Not Detected (Not Detectd) Disposition Clinical Impression: UTI (urinary tract infection), Abdominal pain Disposition: HOME SELF-CARE Condition: Stable Instructions (If sedation given, give patient instructions): Ovarian Cyst (ED), Urinary Tract Infection in Women (ED) Additional Instructions: Take [place] for more severe pain. Alternate this with the Naprosyn you were prescribed so that you are staying on top of your pain. Keep your appointment as scheduled on Tuesday. Do not hesitate to return to the Emergency Department if your pain is uncontrolled with prescribed medications. Prescriptions: Cephalexin [Keflex] 500 mg PO BID 5 Days #10 cap HYDROcodone/APAP 5-325MG [[place] 5] 1 each PO Q6HR PRN #12 tab PRN Reason: Pain Is patient prescribed a controlled substance at d/c from ED?: Yes When asked, does pt state using other controlled substances?: No If prescribed controlled substance>3 days was MAPS reviewed?: Prescribed <3 Days If opioid is for acute pain is fill amount 7 days or less?: Yes If Rx opioid, was Start Talking consent form obtained?: Yes Referrals: Colby Hogan MD [Primary Care Provider] - 1-2 days Cate Wilson DO [Family Provider] - 1-2 days Time of Disposition: 01:55
[2021-12-06] MEDS ORDERED: CEPHALEXIN 500 MG CAP PO STA (01:32)
[2021-12-06] MEDS ORDERED: HYDROmorphone 0.5 MG/0.5 ML SYRINGE IVP STA (01:32)
[2021-12-06 02:13] VITALS: BP 114/76; PULSE 68; RESP 18; TEMP 97.8
== END 2021-12-06 02:13 | disposition home or self-care (01) ==
LOC: EC 22:13
DX: N39.0 Urinary tract infection, site not specified (principal); R10.31 Right lower quadrant pain; Z88.0 Allergy status to penicillin; Z88.1 Allergy status to other antibiotic agents
CPT/HCPCS: 36415; 80053; 81001; 81025; 82150; 83690; 85025; 96361; 96374; 96375; 99284

== ENCOUNTER → 2022-01-07 | Outpatient (CLI) | payer OTHER ==
--- NOTE | 2022-01-07 13:04 | US ---
EXAMINATION TYPE: US pelvic complete DATE OF EXAM: 01/07/2022 COMPARISON: US December 02 2021 CLINICAL HISTORY: N83.01 FOLLICULAR CYST OF RIGHT OVARY. Follow up left ovarian cyst TECHNIQUE: . Transabdominal sonographic images of the pelvis were acquired. Date of LMP: 1 week ago EXAM MEASUREMENTS: Uterus: 6.8 x 3.4 x 4.4 cm Endometrial Stripe: 0.3 cm Right Ovary: 2.8 x 1.9 x 2.4 cm Left Ovary: 3.1 x 1.5 x 2.3 cm 1. Uterus: anteverted 2. Endometrium: appears wnl 3. Right Ovary: wnl 4. Left Ovary: wnl 5. Bilateral Adnexa: wnl 6. Posterior cul-de-sac: wnl Heterogeneous anteverted uterus. Endometrial stripe measures within normal limits for proliferative p hase of menstrual cycle. On current study both ovaries are symmetric and normal in size. Right ovarian nonsimple cyst on prior study has resolved in the interval which correlates with hemorrhagic cyst resolution. IMPRESSION:
== END | disposition home or self-care (01) ==
LOC: RADUSWWP 12:04
PROVIDERS: ATTEND Obstetrics & Gynecology
DX: N83.01 Follicular cyst of right ovary (principal)
CPT/HCPCS: 76856

== ENCOUNTER 2022-11-15 17:36 | Emergency (ER) | payer OTHER ==
[2022-11-15] MEDS ORDERED: SODIUM CHLORIDE 0.9% 2,000 ML IV STA (17:44)
--- NOTE | 2022-11-15 17:46 | ED ---
Nausea/Vomiting/Diarrhea HPI - General Source: patient, RN notes reviewed Mode of arrival: ambulatory Limitations: no limitations - History of Present Illness MD complaint: nausea, vomiting <Haylee Zaragoza - Last Filed: 11/15/22 17:42> - General Source: patient Mode of arrival: ambulatory Limitations: no limitations - History of Present Illness complaint: vomiting <Nanci Brooke - Last Filed: 11/15/22 22:54> - General Chief complaint: Nausea/Vomiting/Diarrhea Stated complaint: dehydrated-13 weeks preg Time Seen by Provider: 11/15/22 17:43 - History of Present Illness Initial comments: This is a 27 year old female who presents to the emergency department for nausea and vomiting. She is 13 weeks and has not been able to keep anything down in over [address] Wilson instructed her to come to the emergency department. She is . Denies any abdominal pain or vaginal bleeding. (Haylee Zaragoza) The patient is a 27 yr old female who is [address] weeks and followed by Dr Wilson, who presents with intractable vomiting. the patient is unable to hold down and fluids or food. she has been taking zofran without relief. the patient states it started Tuesday evening. she has not had any problems with N/V up until this point. she denies any abdominal pain or vaginal bleeding. she denies urinary symptoms. the patient denies any flu like symptoms such as cough, congestion, fever, diarrhea, or sore throat and denies any sick contacts. (Nanci Brooke) - Related Data Home Medications Medication Instructions Recorded Confirmed Fexofenadine HCl [Janett Allergy] 60 mg PO BID 04/05/21 04/05/21 norethindrone-e.estradioL-iron 1 tab PO DAILY 04/05/21 04/05/21 [Erlinda 24 Fe 1 mg-20 Mcg Tablet] Previous Rx's Medication Instructions Recorded FLUoxetine HCL [PROzac] 40 mg PO DAILY 30 Days cap 04/10/21 QUEtiapine [SEROquel] 50 mg PO HS 30 Days tab 04/10/21 Naproxen [Naprosyn] 375 mg PO Q12HR PRN #20 tablet 12/03/21 Cephalexin [Keflex] 500 mg PO BID 5 Days #10 cap 12/06/21 HYDROcodone/APAP 5-325MG [[place] 5] 1 each PO Q6HR PRN #12 tab 12/06/21 Metoclopramide [Reglan] 10 mg PO TID PRN #15 tab 11/15/22 Ondansetron Odt [Zofran Odt] 4 mg PO Q8HR PRN 7 Days #21 tab 11/15/22 Allergies Allergy/AdvReac Type Severity Reaction Status Date / Time amoxicillin Allergy Unknown Verified 11/15/22 17:43 Childhood Penicillins Allergy Unknown Verified 11/15/22 17:43 Childhood Review of Systems ROS Other: All systems not noted in ROS Statement are negative. <Haylee Zaragoza - Last Filed: 11/15/22 17:42> ROS Other: All systems not noted in ROS Statement are negative. Constitutional: Reports: as per HPI Eyes: Reports: as per HPI ENT: Reports: as per HPI Respiratory: Reports: as per HPI Gastrointestinal: Reports: as per HPI, nausea, vomiting Genitourinary: Reports: as per HPI <Nanci Brooke - Last Filed: 11/15/22 22:54> ROS Statement: Those systems with pertinent positive or pertinent negative responses have been documented in the HPI. Past Medical History Past Medical History: No Reported History History of Any Multi-Drug Resistant Organisms: None Reported Past Surgical History: No Surgical Hx Reported Past Anesthesia/Blood Transfusion Reactions: No Reported Reaction Past Psychological History: Anxiety, Depression Smoking Status: Never smoker Past Alcohol Use History: None Reported Past Drug Use History: None Reported - Past Family History Mother Family Medical History: Hypertension <Haylee Zaragoza - Last Filed: 11/15/22 17:42> General Exam <Haylee Zaragoza - Last Filed: 11/15/22 17:42> General appearance: alert, in no apparent distress Head exam: Present: atraumatic, normocephalic Eye exam: Present: normal appearance, PERRL, EOMI Pupils: Present: normal accommodation ENT exam: Present: normal exam Cardiovascular Exam: Present: regular rate, normal rhythm GI/Abdominal exam: Present: soft Neurological exam: Present: alert, altered, oriented X3 Psychiatric exam: Present: normal affect Skin exam: Present: warm <Nanci Brooke - Last Filed: 11/15/22 22:54> - General Exam Comments Initial Comments: Visual Physical Exam Vital signs reviewed General: Well-appearing, nontoxic, no acute distress. Head: Normocephalic, atraumatic Eyes: PERRLA, EOMI ENT: Airway patent Chest: Nonlabored breathing Skin: No visual rash, normal skin tone Neuro: Alert and oriented 3 Musculoskeletal: No gross abnormalities I performed the QuickNote portion of this chart. Signed Haylee Zaragoza PA-C. (Haylee Zaragoza) Course <Nanci Brooke - Last Filed: 11/15/22 22:54> Vital Signs 11/15/22 11/15/22 17:43 20:47 Temperature 99.0 F 97.4 F L Pulse Rate 98 87 Respiratory 16 20 Rate Blood Pressure 130/90 122/101 O2 Sat by Pulse 100 98 Oximetry - Reevaluation(s) Reevaluation #1: 11/15/22 22:48 Reevaluation patient is secretively. She does not want the second NS bolus. The patient is feeling better with IV Zofran and Reglan in the emergency room. She has close follow-up with OB. She was tolerating water prior to discharge. She will continue taking the prenatals. I will write a refill on the zofran ODT and reglan as needed. She may also discuss to Myla with her OB. Again patient has no abdominal pain pelvic pain, urinary symptoms or vaginal bleeding. She also denies any flulike symptoms. (Nanci Brooke) Medical Decision Making - Differential Diagnosis Hyperemesis gravidum, UTi, dehydration - Lab Data Result diagrams: 11/15/22 18:36 11/15/22 18:36 <Nanci Brooke - Last Filed: 11/15/22 22:54> - Medical Decision Making Was pt. sent in by a medical professional or institution ([facility], [facility], urgent care, hospital, or penitentiary...) When possible be specific @ -OB Did you speak to anyone other than the patient for history (EMS, parent, family, police, friend...)? What history was obtained from this source @ -[No] Did you review nursing and triage notes (agree or disagree)? Why? @ -[I reviewed and agree with nursing and triage notes] Were old charts reviewed (outside hosp., previous admission, EMS record, old EKG, old radiological studies, urgent care reports/EKG's, penitentiary records)? Report findings @ -[No old charts were reviewed] Differential Diagnosis (chest pain, altered mental status, abdominal pain women, abdominal pain men, vaginal bleeding, weakness, fever, dyspnea, syncope, headache, dizziness, GI bleed, back pain, seizure, CVA, palpatations, mental health, musculoskeletal)? @ -Hyperemesis gravidarum, UTI, Dehydration EKG interpreted by me (3pts min.). @ -[As above] X-rays interpreted by me (1pt min.). @ -[None done] CT interpreted by me (1pt min.). @ -[None done] U/S interpreted by me (1pt. min.). @ -[None done] What testing was considered but not performed or refused? (CT, X-rays, U/S, labs)? Why? @ -[None] What meds were considered but not given or refused? Why? @ -[None] Did you discuss the management of the patient with other professionals (professionals i.e. , PA, [employer], lab, RT, psych nurse, social worker assistant, endocrinology teacher, teacher, special service officer, bilingual patient support caseworker)? Give summary @ -Discussed patient's symptoms and management in the emergency room with attending ED physician Dr. Edmonds Was smoking cessation discussed for >3mins.? @ -[No] Was critical care preformed (if so, how long)? @ -[No] Were there social determinants of health that impacted care today? How? (Homelessness, low income, unemployed, alcoholism, drug addiction, transpor tation, low edu. Level, literacy, decrease access to med. care, alf, rehab)? @ -[No] Was there de-escalation of care discussed even if they declined (Discuss DNR or withdrawal of care, Hospice)? DNR status @ -[No] What co-morbidities impacted this encounter? (DM, HTN, Smoking, COPD, CAD, Cancer, CVA, ARF, Chemo, Hep., AIDS, mental health diagnosis, sleep apnea, morbid obesity)? @ - Was patient admitted / discharged? Hospital course, mention meds given and route, prescriptions, significant lab abnormalities, going to OR and other pertinent info. @ -Patient is feeling better after IV fluids and IV antiemetics. She was tolerating fluids by mouth prior to discharge. She will be discharged home and is to follow-up with her OB. She understands signs and symptoms to return to the emergency room. Is no indication hospitalization is required at this time. Undiagnosed new problem with uncertain prognosis? @ -Hyperemesis Gravidum Drug Therapy requiring intensive monitoring for toxicity (Heparin, Nitro, Insulin, Cardizem)? @ -[No] Were any procedures done? @ -[No] Diagnosis/symptom? @ - Hyperemesis Gravidum Acute, or Chronic, or Acute on Chronic? @ - Acute Uncomplicated (without systemic symptoms) or Complicated (systemic symptoms)? @ - uncomplicated Side effects of treatment? @ -[No] Exacerbation, Progression, or Severe Exacerbation? @ -[No] Poses a threat to life or bodily function? How? (Chest pain, [place], NH, pneumonia, PE, COPD, DKA, ARF, appy, cholecystitis, CVA, Diverticulitis, Homicidal, Suicidal, threat to staff... and all critical care pts) @ -[No] (Nanci Brooke) - Lab Data Lab Results 11/15/22 11/15/22 11/15/22 Range/Units 18:36 18:36 21:35 WBC 8.0 (3.8-10.6) k/uL RBC 4.26 (3.80-5.40) m/uL Hgb 12.8 (11.4-16.0) gm/dL Hct 36.9 (34.0-46.0) % MCV 86.6 (80.0-100.0) fL MCH 30.2 (25.0-35.0) pg MCHC 34.8 (31.0-37.0) g/dL RDW 13.6 (11.5-15.5) % Plt Count 245 (150-450) k/uL MPV 8.0 Neutrophils % 65 % Lymphocytes % 28 % Monocytes % 5 % Eosinophils % 1 % Basophils % 0 % Neutrophils # 5.2 (1.3-7.7) k/uL Lymphocytes # 2.2 (1.0-4.8) k/uL Monocytes # 0.4 (0-1.0) k/uL Eosinophils # 0.1 (0-0.7) k/uL Basophils # 0.0 (0-0.2) k/uL Sodium 138 (137-145) mmol/L Potassium 4.0 (3.5-5.1) mmol/L Chloride 105 (98-107) mmol/L Carbon Dioxide 20 L (22-30) mmol/L Anion Gap 13 mmol/L BUN 8 (7-17) mg/dL Creatinine 0.72 (0.52-1.04) mg/dL Est GFR (CKD-EPI)AfAm >90 (>60 ml/min/1.73 sqM) Est GFR (CKD-EPI)NonAf >90 (>60 ml/min/1.73 sqM) Glucose 76 (74-99) mg/dL Calcium 9.7 (8.4-10.2) mg/dL Total Bilirubin 0.6 (0.2-1.3) mg/dL AST 32 (14-36) U/L ALT 19 (4-34) U/L Alkaline Phosphatase 46 (38-126) U/L Total Protein 7.3 (6.3-8.2) g/dL Albumin 4.4 (3.5-5.0) g/dL HCG, Quant 72202.7 mIU/mL Urine Color Yellow Urine Appearance Clear (Clear) Urine pH 5.5 (5.0-8.0) Ur Specific [employer] 1.026 (1.001-1.035) Urine Protein Trace H (Negative) Urine Glucose (UA) Negative (Negative) Urine Ketones 4+ H (Negative) Urine Blood Negative (Negative) Urine Nitrite Negative (Negative) Urine Bilirubin Negative (Negative) Urine Urobilinogen <2.0 (<2.0) mg/dL Ur Leukocyte Esterase Negative (Negative) Disposition <Haylee Zaragoza - Last Filed: 11/15/22 17:42> Is patient prescribed a controlled substance at d/c from ED?: No Time of Disposition: 10:45 <Nanci Brooke - Last Filed: 11/15/22 22:54> Clinical Impression: Hyperemesis gravidarum, Dehydration Disposition: HOME SELF-CARE Condition: Good Instructions (If sedation given, give patient instructions): Hyperemesis Gravidarum (ED), Acute Nausea and Vomiting (ED) Additional Instructions: Continue with your vitamins. Increase hydration. Follow up with your OBGYN. Prescriptions: Metoclopramide [Reglan] 10 mg PO TID PRN #15 tab PRN Reason: Nausea Ondansetron Odt [Zofran Odt] 4 mg PO Q8HR PRN 7 Days #21 tab PRN Reason: Vomiting Referrals: Cate Wilson DO [Primary Care Provider] - 1-2 days
[2022-11-15 18:56] LABS: Basophils % (A) 0 %; Eosinophils # (A) 0.1 k/uL (0-0.7); Eosinophils % (A) 1 %; HCT 36.9 % (34.0-46.0); HGB 12.8 gm/dL (11.4-16.0); Lymphocytes # (A) 2.2 k/uL (1.0-4.8); Lymphocytes % (A) 28 %; MCH 30.2 pg (25.0-35.0); MCHC 34.8 g/dL (31.0-37.0); MCV 86.6 fL (80.0-100.0); Monocytes # (A) 0.4 k/uL (0-1.0); Monocytes % (A) 5 %; Neutrophils # (A) 5.2 k/uL (1.3-7.7); Neutrophils % (A) 65 %; Platelet Count 245 k/uL (150-450); RBC 4.26 m/uL (3.80-5.40); RDW 13.6 % (11.5-15.5)
[2022-11-15 19:29] LABS: ALT 19 U/L (4-34); AST 32 U/L (14-36); African American GFR (CKD) >90 (>60 ml/min/1.73 sqM); Albumin 4.4 g/dL (3.5-5.0); Alkaline Phosphatase 46 U/L (38-126); Anion Gap 13 mmol/L; Blood Urea Nitrogen 8 mg/dL (7-17); Calcium 9.7 mg/dL (8.4-10.2); Carbon Dioxide 20 mmol/L (22-30); Chloride 105 mmol/L (98-107); Glucose 76 mg/dL (74-99); Non-African American GFR(CKD) >90 (>60 ml/min/1.73 sqM); Sodium 138 mmol/L (137-145); Total Bilirubin 0.6 mg/dL (0.2-1.3); Total Protein 7.3 g/dL (6.3-8.2)
[2022-11-15 20:28] LABS: HCG,Quantitative Serum 44469.7 mIU/mL
[2022-11-15 20:51] VITALS: RESP 20; TEMP 97.4
[2022-11-15] MEDS ORDERED: METOCLOPRAMIDE 5 MG/ML 2 ML VIAL IVP STA (21:22)
[2022-11-15] MEDS ORDERED: ONDANSETRON 4 MG/2 ML VIAL IVP STA (21:23)
[2022-11-15 21:55] LABS: Appearance,Urine Clear (Clear); Bilirubin,Urine Negative (Negative); Blood,Urine Negative (Negative); Color,Urine Yellow; Glucose,Urine (UA) Negative (Negative); Ketones,Urine 4+ (Negative); Leukocyte Esterase,Urine Negative (Negative); Nitrite,Urine Negative (Negative); PH, Urine 5.5 (5.0-8.0); Protein,Urine Trace (Negative); Specific Gravity,Urine 1.026 (1.001-1.035); Urobilinogen,Urine <2.0 mg/dL (<2.0)
[2022-11-15] MEDS ORDERED: SODIUM CHLORIDE 0.9% 500 ML 500 ML IV STA (22:13)
[2022-11-15 22:49] VITALS: BP 122/78; PULSE 85
== END 2022-11-15 22:49 | disposition home or self-care (01) ==
LOC: EC 17:36
DX: O21.0 Mild hyperemesis gravidarum (principal); O99.281 Endocrine, nutritional and metabolic diseases complicating pregnancy, first trimester; E86.0 Dehydration; Z3A.13 13 weeks gestation of pregnancy; Z88.0 Allergy status to penicillin
CPT/HCPCS: 36415; 80053; 85025; 81003; 84702; 99284; 96374; 96375; 96361; J2765; J2405

== ENCOUNTER 2023-03-22 15:50 | Outpatient (CLI) | payer OTHER ==
[2023-03-22 17:12] LABS: Basophils % (A) 0 %; Eosinophils % (A) 0 %; Lymphocytes # (A) 1.2 k/uL (1.0-4.8); Lymphocytes % (A) 16 %; MCH 29.1 pg (25.0-35.0); MCHC 34.5 g/dL (31.0-37.0); MCV 84.3 fL (80.0-100.0); Mean Platelet Volume 8.6; Monocytes # (A) 0.4 k/uL (0-1.0); Monocytes % (A) 5 %; Neutrophils # (A) 5.9 k/uL (1.3-7.7); Neutrophils % (A) 77 %; Platelet Count 250 k/uL (150-450); Poikilocytosis Slight; RDW 14.3 % (11.5-15.5); WBC 7.7 k/uL (3.8-10.6)
[2023-03-22 17:39] LABS: Appearance,Urine Cloudy (Clear); Bilirubin,Urine Negative (Negative); Blood,Urine Negative (Negative); Calcium Oxalate Crystals,Urine Moderate /hpf; Color,Urine Light Yellow; Glucose,Urine (UA) Negative (Negative); Ketones,Urine Negative (Negative); Leukocyte Esterase,Urine Negative (Negative); Mucus,Urine Occasional /hpf; Nitrite,Urine Negative (Negative); PH, Urine 5.5 (5.0-8.0); Protein,Urine 2+ (Negative); RBC,Urine 3 /hpf (0-5); Specific Gravity,Urine 1.027 (1.001-1.035); Squamous Epithelial Cell,Urine 2 /hpf (0-4); Urobilinogen,Urine <2.0 mg/dL (<2.0); WBC,Urine 4 /hpf (0-5)
[2023-03-22 17:42] LABS: Creatinine,Urine Random 138.8 mg/dL
[2023-03-22 17:43] LABS: ALT 13 U/L (4-34); AST 20 U/L (14-36); African American GFR (CKD) >90 (>60 ml/min/1.73 sqM); Blood Urea Nitrogen 10 mg/dL (7-17); Glucose 79 mg/dL (74-99); LDH 134 U/L (120-246); Non-African American GFR(CKD) >90 (>60 ml/min/1.73 sqM); Uric Acid 4.1 mg/dL (3.7-7.4)
[2023-03-22 18:02] LABS: Protein/Creatinine Ratio,Urine 2.558
[2023-03-22 18:33] VITALS: BP 127/76; PULSE 98; RESP 17; TEMP 98
== END 2023-03-22 18:20 | disposition home or self-care (01) ==
LOC: FBPOP 15:50
PROVIDERS: ATTEND Obstetrics & Gynecology
DX: O24.414 Gestational diabetes mellitus in pregnancy, insulin controlled (principal); O13.3 Gestational [pregnancy-induced] hypertension without significant proteinuria, third trimester; Z3A.31 31 weeks gestation of pregnancy; Z88.0 Allergy status to penicillin
CPT/HCPCS: 59025; 82570; 84156; 82565; 83615; 82947; 84450; 84460; 84520; 84550; 85025; 81001; G0463; 99215

== ENCOUNTER 2023-03-23 16:11 | Outpatient (CLI) | payer OTHER ==
[2023-03-23 18:38] VITALS: BP 121/75; PULSE 96; RESP 16; TEMP 98.1
--- NOTE | 2023-03-26 05:06 | P.MSEPDOC ---
Presenting Problems - Arrival Data Date of Arrival on Unit: 03/23/23 Time of Arrival on Unit: 16:11 Mode of Transport: Ambulatory - Complaint OB-Reason for Admission/Chief Complaint: PIH Comment: pt states that she took her BP at work and was 150/78, called office and was told to come to L&D to get evaluated. Medical History - Information : 1 Para: 0 Term: 0 : 0 Abortions: Spontaneous or Elective: 0 Number of Living Children: 0 - Gestational Age Gestational Age by DANIELLE (wks/days): 31 Weeks and 2 Days - History Complications: GDM Review of Systems - Review of Systems Constitutional: No problems Breast: No problems ENT: No problems Cardiovascular: No problems Respiratory: No problems Gastrointestinal: No problems Genitourinary: No problems Musculoskeletal: No problems Neurological: No problems Skin: No problems Vital Signs - Temperature Temperature: 98.1 F Temperature Source: Oral - Pulse Pulse Oximetery Pulse Rate: 96 Pulse Assessment Method: Pulse Oximetry - Respirations Respiratory Rate: 16 Oxygen Delivery Method: Room Air O2 Sat by Pulse Oximetry: 96 - Blood Pressure Right Arm Blood Pressure: 121/75 Blood Pressure Mean: 90 Blood Pressure Source: Automatic Cuff Medical Screen Scoring - Assessment - Baby A Baseline FHR: 125 Heart Rate - NICHD Category: Category I (Normal) NST: Reactive Physician Notification - Physician Notified Physician Notified Date: 03/23/23 Physician Notified Time: 17:02 Physician: Mirna Mahmood Order Received: Yes (d/c pt home) Maternal Triage Index - Maternal Triage Index Presenting for scheduled procedure w/no complaint: No - Stat/Priority 1 Stat Priority 1: No - Urgent/Priority 2 Urgent Priority 2: No - Prompt/Priority 3 Prompt Priority 3: No - Non-Urgent/Priority 4 Non-Urgent Priority 4: Yes Criteria Met for Priority 4: pt complains of high blood pressure at work of 150/78 and was told by office to come to L&D to get evaluted Disposition - Disposition OB Disposition: Discharge to home Discharge Date: 03/23/23 Discharge Time: 17:15 I agree with the RN Medical Screening Exam: Yes Case reviewed; plan agreed upon as documented in EMR&OBIX.: Yes Diagnosis: UNSPECIFIED MATERNAL HYPERTENSION, THIRD TRIMESTER
== END 2023-03-23 17:15 | disposition home or self-care (01) ==
LOC: FBPOP 16:11
PROVIDERS: ATTEND Obstetrics & Gynecology
DX: O13.3 Gestational [pregnancy-induced] hypertension without significant proteinuria, third trimester (principal); O24.414 Gestational diabetes mellitus in pregnancy, insulin controlled; Z3A.31 31 weeks gestation of pregnancy; Z88.0 Allergy status to penicillin
CPT/HCPCS: 59025; G0463; 99215

== ENCOUNTER 2023-05-03 06:08 | Inpatient (IN) | payer OTHER ==
[2023-05-03] MEDS ORDERED: CARBOPROST TROMETHAMINE 250 MCG/ML 1 ML AMP IM PRN (06:13)
[2023-05-03] MEDS ORDERED: miSOPROStoL 200 MCG TAB PO PRN (06:13)
[2023-05-03] MEDS ORDERED: TRANEXAMIC 1,000 MG/100ML-NACL 1,000 MG in EMPTY BAG 1 BAG IV PRN (06:13)
[2023-05-03] MEDS ORDERED: METHYLERGONOVINE 0.2 MG/ML 1 ML AMP IM PRN (06:13)
[2023-05-03] MEDS ORDERED: OXYTOCIN 10 UNIT/ML 1 ML VIAL IM PRN (06:13)
[2023-05-03] MEDS ORDERED: OXYTOCIN 30 UNITS/500 ML NS 30 UNIT in SALINE 1 500ML.BAG IV SCH (06:15)
[2023-05-03 06:27] LABS: Glucose,Whole Blood 79 mg/dL (70-110)
[2023-05-03 06:46] LABS: Basophils % (A) 0 %; Eosinophils # (A) 0.1 k/uL (0-0.7); Eosinophils % (A) 2 %; HCT 30.8 % (34.0-46.0); HGB 10.5 gm/dL (11.4-16.0); Lymphocytes # (A) 1.5 k/uL (1.0-4.8); Lymphocytes % (A) 25 %; MCH 28.8 pg (25.0-35.0); MCHC 34.1 g/dL (31.0-37.0); MCV 84.4 fL (80.0-100.0); Mean Platelet Volume 9.7; Monocytes # (A) 0.3 k/uL (0-1.0); Monocytes % (A) 6 %; Neutrophils # (A) 3.8 k/uL (1.3-7.7); Neutrophils % (A) 65 %; Platelet Count 227 k/uL (150-450); RBC 3.65 m/uL (3.80-5.40); RDW 14.9 % (11.5-15.5); WBC 5.8 k/uL (3.8-10.6)
[2023-05-03] MEDS: LACTATED RINGERS 1,000 ML IV SCH ×2 (06:49→08:45)
[2023-05-03] MEDS: CITRIC ACID-SODIUM CITRATE 15 ML CUP PO ONE (07:32)
[2023-05-03 07:44] LABS: INR 0.9 (<1.2); Partial Thromboplastin Time 23.7 sec (22.0-30.0); Prothrombin Time 10.1 sec (10.0-12.5)
[2023-05-03] MEDS ORDERED: diphenhydrAMINE 50 MG CAP PO PRN (08:32)
[2023-05-03] MEDS ORDERED: diphenhydrAMINE 25 MG CAP PO PRN (08:32)
[2023-05-03] MEDS ORDERED: LANOLIN CREAM 5 GM TUBE TOPICAL PRN (08:32)
[2023-05-03] MEDS ORDERED: NALOXONE 0.4 MG/ML 1 ML VIAL IV PRN ×2 (08:32→10:10)
[2023-05-03] MEDS ORDERED: ZOLPIDEM 5 MG TAB PO PRN (08:32)
[2023-05-03] MEDS ORDERED: METOCLOPRAMIDE 5 MG/ML 2 ML VIAL IVP PRN (08:32)
[2023-05-03] MEDS ORDERED: diphenhydrAMINE 50 MG/ML 1 ML VIAL IVP PRN ×2 (08:32→10:10)
[2023-05-03] MEDS ORDERED: ONDANSETRON 4 MG/2 ML VIAL IVP PRN (08:32)
--- NOTE | 2023-05-03 08:37 | P.HPOB ---
History of Present Illness H&P Date: 05/03/23 Chief Complaint: primary low transverse 28 year old presents at 37 weeks for primary low transverse . He has been breech and over the 90th percentile. Patient has been followed for gestational diabetes and mild preeclampsia for the last several weeks. Review of Systems All systems: negative Constitutional: Denies chills, Denies fever Eyes: denies blurred vision, denies pain Ears, nose, mouth and throat: Denies headache, Denies sore throat Cardiovascular: Denies chest pain, Denies shortness of breath Respiratory: Denies cough Gastrointestinal: Denies abdominal pain, Denies diarrhea, Denies nausea, Denies vomiting Genitourinary: Denies dysuria, Denies hematuria Musculoskeletal: Denies myalgias Integumentary: Denies pruritus, Denies rash Neurological: Denies numbness, Denies weakness Psychiatric: Denies anxiety, Denies depression Endocrine: Denies fatigue, Denies weight change Past Medical History Past Medical History: No Reported History Additional Past Medical History / Comment(s): gestational diabetes, preeclampsia with mild features History of Any Multi-Drug Resistant Organisms: None Reported Past Surgical History: No Surgical Hx Reported Past Anesthesia/Blood Transfusion Reactions: No Reported Reaction Past Psychological History: Anxiety, Depression Smoking Status: Never smoker Past Alcohol Use History: None Reported Past Drug Use History: None Reported - Past Family History Mother Family Medical History: Hypertension Medications and Allergies Home Medications Medication Instructions Recorded Confirmed Type FLUoxetine HCL [PROzac] 40 mg PO DAILY 30 Days cap 04/10/21 04/26/23 Rx QUEtiapine [SEROquel] 50 mg PO HS 30 Days tab 04/10/21 04/26/23 Rx Insulin Detemir (Levemir) [Levemir] 20 units SQ HS 03/22/23 04/26/23 History Venlafaxine HCl [Effexor] 1 tab PO DAILY 03/23/23 04/26/23 History Allergies Allergy/AdvReac Type Severity Reaction Status Date / Time amoxicillin Allergy Unknown Verified 04/26/23 14:21 Childhood Penicillins Allergy Unknown Verified 04/26/23 14:21 Childhood Exam Osteopathic Statement: *. No significant issues noted on an osteopathic structural exam other than those noted in the History and Physical/Consult. Vital Signs Temp Pulse Resp BP Pulse Ox 05/03/23 06:12 97.4 F L 81 16 168/92 99 Intake and Output 05/02/23 05/03/23 05/03/23 22:59 06:59 14:59 Other: Weight 117.934 kg Heart: Regular rate and rhythm Lungs: Clear to auscultation bilaterally Abdomen: Soft, nontender Extremities: Negative Homans sign Results Result Diagrams: 05/03/23 06:20 Abnormal Lab Results - Last 24 Hours (Table) 05/03/23 Range/Units 06:20 RBC 3.65 L (3.80-5.40) m/uL Hgb 10.5 L (11.4-16.0) gm/dL Hct 30.8 L (34.0-46.0) % Assessment and Plan (1) Breech presentation Current Visit: Yes Status: Acute Code(s): O32.1XX0 - MATERNAL CARE FOR BREECH PRESENTATION, UNSP SNOMED Code(s): 6911572 (2) Gestational diabetes Current Visit: Yes Status: Acute Code(s): O24.419 - GESTATIONAL DIABETES MELLITUS IN , UNSP CONTROL SNOMED Code(s): 85188467 (3) Preeclampsia Current Visit: Yes Status: Acute Code(s): O14.90 - UNSPECIFIED PRE- ECLAMPSIA, UNSPECIFIED TRIMESTER SNOMED Code(s): 053704584 Plan: 1. Primary low transverse
--- NOTE | 2023-05-03 08:39 | P.OP ---
Date of Procedure: 05/03/23 Preoperative Diagnosis: 1. at 37 weeks 1 day 2. pre-eclampsia 3. breech 4. gestational diabetes Postoperative Diagnosis: same Procedure(s) Performed: Primary low transverse Anesthesia: spinal Surgeon: Cate Wilson Drier And Pulverizer Tender #1: Carlos Vazquez Estimated Blood Loss (ml): 660 IV fluids (ml): 700 Urine output (ml): 200 Pathology: none sent Condition: stable Disposition: floor Operative Findings: Viable male, Apgars 9, 9, weight 8 lbs. 13 oz. Normal uterus, tubes, ovaries Description of Procedure: Patient was taken to the operating room where spinal anesthesia was found be adequate. She was prepped and draped in normal sterile fashion in dorsal supine position with a leftward tilt. Pfannenstiel skin incision was made the scalpel and carried through to the underlying layer of fascia with the scalpel. Fascia was incised in midline and carried bilaterally with the Roman scissors. The superior aspect of the fascial incision was grasped with Jacek clamps elevated and the underlying rectus muscles dissected off with the Roman's. Attention was then turned to inferior aspect of same incision which in a similar fashion was grasped tented up and the underlying rectus muscles dissected off with the Roman's. The rectus muscles were the midline and the peritoneum was identified tented up and entered sharply with the scalpel. The incision was extended superiorly and inferiorly with good visualization of the bladder. The bladder blade was inserted and the vesicouterine peritoneum was incised the Metzenbaums then carried bilaterally and bladder flap created digitally. A low transverse incision was then made on the uterus with the scalpel. This was carried bilaterally and digital manner. 's head delivered atraumatically, nose and mouth bulb suctioned, cord clamped and cut, infant handed off to waiting nurses. Apgars 9,9, weight 8 lbs. 13 oz. Placenta delivered manually, intact with three-vessel cord. The uterus is exteriorized and cleared of all clots and debris. The uterine incision was closed with 0 Vicryl in a running locked fashion. Second layer of the same sutures used in imbricating fashion to obtain excellent hemostasis. Bladder flap was then reapproximated using 2-0 Vicryl in a running fashion. Both ovaries and tubes appeared normal. The uterus was placed back into the abdomen. The peritoneum was reapproximated using 2-0 Vicryl in a running fashion. The muscles were reapproximated using 2- 0 Vicryl in interrupted fashion. The fascia was reapproximated using 0 Vicryl in a running fashion. The subcutaneous tissues closed with 3-0 Vicryl running fashion. The skin was closed pearl. Patient tolerated the procedure well, sponge and instrument counts were correct times 2 and she was taken to the recovery room in stable condition.
[2023-05-03] MEDS ORDERED: MORPHINE SULFATE 2 MG/ML SYRINGE IVP PRN (10:10)
[2023-05-03] MEDS ORDERED: NALBUPHINE 10 MG/ML (10 ML MDV) IV PRN (10:10)
[2023-05-03] MEDS: miSOPROStoL 200 MCG TAB RECTAL STA (11:10)
[2023-05-03 12:06] LABS: Basophils % (A) 0 %; Eosinophils # (A) 0.1 k/uL (0-0.7); Eosinophils % (A) 1 %; HCT 25.3 % (34.0-46.0); Lymphocytes # (A) 1.9 k/uL (1.0-4.8); Lymphocytes % (A) 17 %; MCH 28.4 pg (25.0-35.0); MCV 83.5 fL (80.0-100.0); Mean Platelet Volume 10.2; Monocytes # (A) 0.5 k/uL (0-1.0); Monocytes % (A) 4 %; Neutrophils # (A) 8.4 k/uL (1.3-7.7); Neutrophils % (A) 76 %; Platelet Count 255 k/uL (150-450); RBC 3.03 m/uL (3.80-5.40); RDW 15.2 % (11.5-15.5)
[2023-05-03 12:10] LABS: HGB 8.6 gm/dL (11.4-16.0)
[2023-05-03] MEDS: KETOROLAC 15 MG/ML 1 ML VIAL IVP SCH (14:34)
[2023-05-03] MEDS: IBUPROFEN 600 MG TAB PO SCH (16:13)
[2023-05-03] MEDS: ACETAMINOPHEN TAB 500 MG TAB PO SCH (16:14)
[2023-05-03 17:21] LABS: Basophils % (A) 0 %; Eosinophils % (A) 0 %; HGB 8.7 gm/dL (11.4-16.0); Lymphocytes # (A) 1.7 k/uL (1.0-4.8); Lymphocytes % (A) 17 %; MCH 29.2 pg (25.0-35.0); MCHC 34.7 g/dL (31.0-37.0); MCV 84.2 fL (80.0-100.0); Mean Platelet Volume 10.1; Monocytes # (A) 0.4 k/uL (0-1.0); Monocytes % (A) 4 %; Neutrophils # (A) 7.5 k/uL (1.3-7.7); Neutrophils % (A) 76 %; Platelet Count 217 k/uL (150-450); Poikilocytosis Slight; RBC 2.97 m/uL (3.80-5.40); WBC 9.8 k/uL (3.8-10.6)
[2023-05-03] MEDS: diphenhydrAMINE 50 MG/ML 1 ML VIAL IVP PRN (20:34)
[2023-05-03] MEDS: SENNOSIDES-DOCUSATE SODIUM 1 EACH TAB PO SCH (20:51)
[2023-05-03] MEDS: SIMETHICONE 80 MG CHEWABLE PO PRN (20:51)
[2023-05-04 06:29] LABS: Basophils % (A) 0 %; Eosinophils # (A) 0.1 k/uL (0-0.7); Eosinophils % (A) 2 %; HCT 23.3 % (34.0-46.0); HGB 7.8 gm/dL (11.4-16.0); Lymphocytes # (A) 1.5 k/uL (1.0-4.8); Lymphocytes % (A) 22 %; MCH 28.5 pg (25.0-35.0); MCHC 33.7 g/dL (31.0-37.0); MCV 84.8 fL (80.0-100.0); Monocytes # (A) 0.4 k/uL (0-1.0); Monocytes % (A) 5 %; Neutrophils % (A) 71 %; Platelet Count 193 k/uL (150-450); RBC 2.75 m/uL (3.80-5.40); RDW 15.3 % (11.5-15.5); WBC 7.1 k/uL (3.8-10.6)
--- NOTE | 2023-05-05 08:24 | P.PN ---
Progress Note - Text Progress Note Date: 05/05/23 Postoperative day 1 status post section under spinal anesthesia, and intrathecal morphine given for postoperative analgesia, patient doing well, there is no anesthesia related complications, Patient had no headache, vital signs stable , Assessment and plan= postop day 1 status post , doing well there is no anesthesia related complication.
[2023-05-05] MEDS: FLUoxetine HCL 20 MG CAP PO SCH (11:26)
[2023-05-05] MEDS: VENLAFAXINE HCL 75 MG TAB PO SCH (11:26)
--- NOTE | 2023-05-05 12:28 | P.PNOBGPC ---
Subjective - Subjective Principal diagnosis: Status post primary low transverse postop day 1 Interval history: Patient seen and examined. Denies nausea, vomiting, chest pain, shortness of breath or calf pain. I was called to see the patient yesterday when she had a hemorrhage. She lost about 2 L of blood and she consented to 1 unit of blood transfusion. I placed a rectal Cytotec 1000 g and then also placed a Caty L fashion. The drain was kept in for 5 hours and when removed bleeding had resolved. Patient reports: Reports appetite normal, Reports voiding normally, Reports pain well controlled, Reports ambulating normally [place]: doing well Objective - Vital Signs Latest vital signs: Vital Signs Temp Pulse Resp BP Pulse Ox 05/05/23 08:00 97.6 F 94 16 147/88 99 05/05/23 01:00 97.8 F 97 16 141/90 98 05/04/23 17:26 97.5 F L 82 16 139/85 Intake and Output 05/04/23 05/05/23 05/05/23 22:59 06:59 14:59 Other: # Voids 1 2 1 - Exam Lungs: bilateral: normal Chest: Normal S1, Normal S2 Extremities: Present: normal Abdomen: Present: normal appearance, soft. Absent: distention, tenderness Incision: Present: normal, dry, intact Uterus: Present: normal, firm - Labs Labs: Abnormal Lab Results - Last 24 Hours (Table) 05/03/23 Range/Units 06:20 Crossmatch See Detail Assessment and Plan (1) Breech presentation Current Visit: Yes Status: Resolved Code(s): O32.1XX0 - MATERNAL CARE FOR BREECH PRESENTATION, UNSP SNOMED Code(s): 9509372 (2) Gestational diabetes Current Visit: Yes Status: Resolved Code(s): O24.419 - GESTATIONAL DIABETES MELLITUS IN , UNSP CONTROL SNOMED Code(s): 55385873 (3) Preeclampsia Current Visit: Yes Status: Acute Code(s): O14.90 - UNSPECIFIED PRE- ECLAMPSIA, UNSPECIFIED TRIMESTER SNOMED Code(s): 093198342 (4) Status post primary low transverse section Current Visit: Yes Status: Acute Code(s): Z98.891 - HISTORY OF UTERINE SCAR FROM PREVIOUS SURGERY SNOMED Code(s): 672244793 (5) hemorrhage Current Visit: Yes Status: Acute Code(s): O72.1 - OTHER IMMEDIATE HEMORRHAGE SNOMED Code(s): 91125671 (6) Anemia due to acute blood loss Current Visit: Yes Status: Acute Code(s): D62 - ACUTE POSTHEMORRHAGIC ANEMIA SNOMED Code(s): 146860203 Plan: 1. continue to monitor closely
--- NOTE | 2023-05-05 12:29 | P.DS ---
Providers Date of admission: 05/03/23 06:08 Expected date of discharge: 05/05/23 Attending physician: Cate Wilson Primary care physician: Stated None - Discharge Diagnosis(es) (1) Breech presentation Current Visit: Yes Status: Resolved (2) Gestational diabetes Current Visit: Yes Status: Resolved (3) Preeclampsia Current Visit: Yes Status: Acute (4) Status post primary low transverse section Current Visit: Yes Status: Acute (5) hemorrhage Current Visit: Yes Status: Acute (6) Anemia due to acute blood loss Current Visit: Yes Status: Acute Hospital Course: Patient presented for primary low transverse . She underwent this procedure. she had a hemorrhage treated with Cytotec and IV Pitocin as well as the Caty. Her hemoglobin is now stable. She does not have any symptoms of anemia. Denies nausea, vomiting, chest pain, shortness of breath, calf pain or headache, no dizziness upon standing. Patient will be discharged home day #2 in stable condition to follow-up with me in one week. Plan - Discharge Summary Discharge Rx Participant: No New Discharge Prescriptions: No Action Venlafaxine HCl [Effexor] 1 tab PO DAILY FLUoxetine HCL [PROzac] 40 mg PO DAILY 30 Days cap QUEtiapine [SEROquel] 50 mg PO HS 30 Days tab Insulin Detemir (Levemir) [Levemir] 20 units SQ HS Discharge Medication List FLUoxetine HCL [PROzac] 40 mg PO DAILY 30 Days cap 04/10/21 [Rx] QUEtiapine [SEROquel] 50 mg PO HS 30 Days tab 04/10/21 [Rx] Insulin Detemir (Levemir) [Levemir] 20 units SQ HS 03/22/23 [History] Venlafaxine HCl [Effexor] 1 tab PO DAILY 03/23/23 [History] Follow up Appointment(s)/Referral(s): Cate Wilson DO [Doctor of Osteopathic Medicine] - 06/09/23 11:00 am (Post Op Appointment 05-12-2023 at 1:30) Discharge Disposition: HOME SELF-CARE
[2023-05-05] MEDS: QUEtiapine 50 MG TAB PO SCH (20:23)
[2023-05-06 10:25] VITALS: BP 141/90; PULSE 82; RESP 16; TEMP 97.8
== END 2023-05-06 12:50 | disposition home or self-care (01) | DRG 540 ==
LOC: 4FBP 06:08
PROVIDERS: ADMIT Obstetrics & Gynecology; ATTEND Obstetrics & Gynecology
PROC: 10D00Z1 Extraction of Products of Conception, Low, Open Approach (ICD-10-PCS; principal; 2023-05-03 08:00)
PROC: 0W3F0ZZ Control Bleeding in Abdominal Wall, Open Approach (ICD-10-PCS; 2023-05-04)
DX: O32.1XX0 Maternal care for breech presentation, not applicable or unspecified (principal); D62 Acute posthemorrhagic anemia; F32.A Depression, unspecified; F41.9 Anxiety disorder, unspecified; O14.94 Unspecified pre-eclampsia, complicating childbirth; O24.424 Gestational diabetes mellitus in childbirth, insulin controlled; O72.1 Other immediate postpartum hemorrhage; O99.344 Other mental disorders complicating childbirth; O90.81 Anemia of the puerperium; Z37.0 Single live birth; Z3A.37 37 weeks gestation of pregnancy; Z79.899 Other long term (current) drug therapy; Z82.49 Family history of ischemic heart disease and other diseases of the circulatory system; Z88.1 Allergy status to other antibiotic agents; Z88.0 Allergy status to penicillin
CPT/HCPCS: 85025; 85610; 85730; 86850; 86900; 86901; 86920